=== PATIENT | male | born 1980 | race Caucasian/White ===

== ENCOUNTER → 2017-02-19 | Outpatient (CLI) | payer OTHER ==
[2017-02-19 09:27] LABS: BASOPHILS % (AUTO) 1 % (0-10); EOSINOPHILS # (AUTO) 0.2 10^3/uL (0.0-0.3); EOSINOPHILS % (AUTO) 3 % (0-10); LYMPHOCYTES # (AUTO) 2.3 X 10^3 (1.0-4.0); LYMPHOCYTES % (AUTO) 37 % (12-44); MEAN CORPUSCULAR HEMOGLOBIN 31 PG (25-34); MEAN CORPUSCULAR HGB CONC 35 G/DL (32-36); MEAN CORPUSCULAR VOLUME 89 FL (80-99); MEAN PLATELET VOLUME 8.6 FL (7.4-10.4); MONOCYTES # (AUTO) 0.4 X 10^3 (0.0-1.0); MONOCYTES % (AUTO) 7 % (0-12); NEUTROPHILS # (AUTO) 3.3 X 10^3 (1.8-7.8); NEUTROPHILS % (AUTO) 52 % (42-75); PLATELET COUNT 124 10^3/uL (130-400); RED BLOOD COUNT 5.13 10^6/uL (4.35-5.85); RED CELL DISTRIBUTION WIDTH 13.3 % (10.0-14.5); WHITE BLOOD COUNT 6.2 10^3/uL (4.3-11.0)
== END ==
LOC: LAB 08:59
PROVIDERS: ATTEND Internal Medicine Nephrology
DX: I12.9 Hypertensive chronic kidney disease with stage 1 through stage 4 chronic kidney disease, or unspecified chronic kidney disease (principal); N18.3 Chronic kidney disease, stage 3 (moderate); D64.9 Anemia, unspecified; R60.9 Edema, unspecified
CPT/HCPCS: 36415; 82728; 85025

== ENCOUNTER → 2018-05-05 | Outpatient (CLI) | payer SELFPAY ==
[2018-05-05 09:29] LABS: BILIRUBIN,URINE NEGATIVE (NEGATIVE); CLARITY,URINE SLIGHTLY CLOUDY; COLOR,URINE YELLOW; GLUCOSE, URINE (UA) NEGATIVE (NEGATIVE); KETONES,URINE NEGATIVE (NEGATIVE); LEUKOCYTE ESTERASE ,URINE 3+ (NEGATIVE); NITRITE,URINE NEGATIVE (NEGATIVE); PH,URINE 6 (5-9); PROTEIN,URINE 4+ (NEGATIVE); UROBILINOGEN,URINE 1 MG/DL (NORMAL)
[2018-05-05 09:31] LABS: BASOPHILS % (AUTO) 1 % (0-10); EOSINOPHILS # (AUTO) 0.1 10^3/uL (0.0-0.3); EOSINOPHILS % (AUTO) 3 % (0-10); HEMATOCRIT 45 % (40-54); HEMOGLOBIN 15.9 G/DL (13.3-17.7); LYMPHOCYTES # (AUTO) 1.4 X 10^3 (1.0-4.0); LYMPHOCYTES % (AUTO) 30 % (12-44); MEAN CORPUSCULAR HEMOGLOBIN 31 PG (25-34); MEAN CORPUSCULAR HGB CONC 36 G/DL (32-36); MEAN CORPUSCULAR VOLUME 86 FL (80-99); MEAN PLATELET VOLUME 8.9 FL (7.4-10.4); MONOCYTES # (AUTO) 0.3 X 10^3 (0.0-1.0); MONOCYTES % (AUTO) 7 % (0-12); NEUTROPHILS # (AUTO) 2.8 X 10^3 (1.8-7.8); NEUTROPHILS % (AUTO) 60 % (42-75); PLATELET COUNT 108 10^3/uL (130-400); RED CELL DISTRIBUTION WIDTH 13.4 % (10.0-14.5); WHITE BLOOD COUNT 4.6 10^3/uL (4.3-11.0)
[2018-05-05 09:43] LABS: BACTERIA,URINE NEGATIVE /HPF; WBC,URINE 25-50 /HPF
[2018-05-05 09:49] LABS: ALBUMIN 4.3 GM/DL (3.2-4.5); CALCIUM 9.3 MG/DL (8.5-10.1); CREATININE SERUM 1.58 MG/DL (0.60-1.30); PHOSPHORUS 2.6 MG/DL (2.3-4.7); POTASSIUM 3.8 MMOL/L (3.6-5.0)
== END ==
LOC: LAB 09:01
PROVIDERS: ATTEND Internal Medicine Nephrology
DX: I12.9 Hypertensive chronic kidney disease with stage 1 through stage 4 chronic kidney disease, or unspecified chronic kidney disease (principal); N18.3 Chronic kidney disease, stage 3 (moderate); D64.9 Anemia, unspecified; R60.0 Localized edema
CPT/HCPCS: 36415; 80069; 81000; 82306; 82570; 83970; 84156; 85025; 87088

== ENCOUNTER → 2018-11-09 | Outpatient (CLI) | payer OTHER ==
[2018-11-09 14:56] LABS: BASOPHILS % (AUTO) 0 % (0-10); EOSINOPHILS # (AUTO) 0.1 10^3/uL (0.0-0.3); EOSINOPHILS % (AUTO) 2 % (0-10); HEMATOCRIT 45 % (40-54); HEMOGLOBIN 15.7 G/DL (13.3-17.7); LYMPHOCYTES # (AUTO) 1.2 X 10^3 (1.0-4.0); LYMPHOCYTES % (AUTO) 25 % (12-44); MEAN CORPUSCULAR HEMOGLOBIN 31 PG (25-34); MEAN CORPUSCULAR HGB CONC 35 G/DL (32-36); MEAN CORPUSCULAR VOLUME 88 FL (80-99); MEAN PLATELET VOLUME 8.9 FL (7.4-10.4); MONOCYTES # (AUTO) 0.3 X 10^3 (0.0-1.0); MONOCYTES % (AUTO) 6 % (0-12); NEUTROPHILS # (AUTO) 3.3 X 10^3 (1.8-7.8); NEUTROPHILS % (AUTO) 66 % (42-75); PLATELET COUNT 99 10^3/uL (130-400); RED CELL DISTRIBUTION WIDTH 13.8 % (10.0-14.5)
[2018-11-09 15:06] LABS: BILIRUBIN,URINE NEGATIVE (NEGATIVE); CLARITY,URINE CLEAR; COLOR,URINE YELLOW; GLUCOSE, URINE (UA) NEGATIVE (NEGATIVE); KETONES,URINE NEGATIVE (NEGATIVE); LEUKOCYTE ESTERASE ,URINE 2+ (NEGATIVE); NITRITE,URINE NEGATIVE (NEGATIVE); PH,URINE 5 (5-9); PROTEIN,URINE 4+ (NEGATIVE); UROBILINOGEN,URINE NORMAL (NORMAL)
[2018-11-09 15:15] LABS: CREATININE SERUM 1.74 MG/DL (0.60-1.30); POTASSIUM 3.6 MMOL/L (3.6-5.0)
[2018-11-09 15:28] LABS: BACTERIA,URINE FEW /HPF; WBC,URINE 25-50 /HPF
== END ==
LOC: LAB 14:07
PROVIDERS: ATTEND Internal Medicine Nephrology
DX: I12.9 Hypertensive chronic kidney disease with stage 1 through stage 4 chronic kidney disease, or unspecified chronic kidney disease (principal); N18.3 Chronic kidney disease, stage 3 (moderate); D64.9 Anemia, unspecified; R60.0 Localized edema; D69.6 Thrombocytopenia, unspecified; E21.1 Secondary hyperparathyroidism, not elsewhere classified; R82.90 Unspecified abnormal findings in urine
CPT/HCPCS: 36415; 80069; 81000; 82306; 82570; 83970; 84156; 85025; 87088

== ENCOUNTER 2018-12-14 10:39 | Emergency (ER) | payer OTHER ==
[~2018-12-14] VITALS: Ht 185.4 cm; Wt 106.6 kg
[2018-12-14] MEDS ORDERED: HYDR-4226 PO (10:53)
--- NOTE | 2018-12-14 10:53 | ED Fall/Injury ---
General Stated Complaint: HURT RIBS AT WORK, HIT RIBS ON EQUIPMENT AT WORK Source: patient Exam Limitations: no limitations History of Present Illness Date Seen by Provider: Dec 14, 2018 Time Seen by Provider: 10:49 Initial Comments To ER per private vehicle with reports of a fall at work. This occurred yesterday, he works at [employer] and fell against a large skillet. He complains of pain to the right lateral lower chest and upper abdomen area. He denies shortness of breath. Denies lightheadedness. Occurred: yesterday Severity: moderate Injuries/Pain Location: chest, abdomen Context: slipped Loss of Consciousness: no loss of consciousness Modifying Factors: Worse With Movement Allergies and Home Medications Allergies Coded Allergies: No Known Drug Allergies (Unverified , 10/21/15) Home Medications Hydrocodone/Acetaminophen 1 Each Tablet, 1 EACH PO Q6H PRN for PAIN-MODERATE Prescribed by: DAYANA VALDOVINOS on 12/14/18 1053 Patient Home Medication List Home Medication List Reviewed: Yes Review of Systems Review of Systems Constitutional: see HPI Eyes: No Symptoms Reported Ears, Nose, Mouth, Throat: no symptoms reported Respiratory: see HPI, other (Pain on deep breathing) Cardiovascular: no symptoms reported Genitourinary: no symptoms reported Musculoskeletal: no symptoms reported Skin: no symptoms reported Psychiatric/Neurological: No Symptoms Reported Past Dbtxnjb-Nuvviv-Xprgem Hx Patient Social History Recent Foreign Travel: No Contact w/Someone Who Travel: No Past Medical History Reproductive Disorders: No Adverse Reaction/Blood Tranf: No Physical Exam Vital Signs Vital Signs - First Documented 12/14/18 10:45 Temp 96.5 Pulse 62 Resp 18 B/P (MAP) 241/157 (185) Pulse Ox 94 O2 Delivery Room Air Capillary Refill : Height, Weight, BMI Height: '" Weight: lbs. oz. kg; BMI Method: General Appearance: WD/WN, no apparent distress HEENT: PERRL/EOMI, normal ENT inspection Neck: non-tender, full range of motion Respiratory: no respiratory distress, no accessory muscle use Gastrointestinal: non tender, soft Neurologic/Psychiatric: alert, normal mood/affect, oriented x 3 Skin: normal color, warm/dry, ecchymosis, other (there is a linear ecchymosis oriented and in anterior to posterior fashion along the lateral aspect of the torso on the right just inferior to the 12th rib) Deepthi Coma Score Best Eye Response: (4) Open Spontaneously Best Verbal Response: (5) Oriented Best Motor Response: (6) Obeys Commands Deepthi Total: 15 Progress/Results/Core Measures Results/Orders Lab Results Laboratory Tests Test 12/14/18 11:00 Range/Units White Blood Count 6.2 4.3-11.0 10^3/uL Red Blood Count 5.03 4.35-5.85 10^6/uL Hemoglobin 15.6 13.3-17.7 G/DL Hematocrit 44 40-54 % Mean Corpuscular Volume 87 80-99 FL Mean Corpuscular Hemoglobin 31 25-34 PG Mean Corpuscular Hemoglobin Concent 36 32-36 G/DL Red Cell Distribution Width 13.5 10.0-14.5 % Platelet Count 111 L 130-400 10^3/uL Mean Platelet Volume 8.7 7.4-10.4 FL Neutrophils (%) (Auto) 71 42-75 % Lymphocytes (%) (Auto) 20 12-44 % Monocytes (%) (Auto) 7 0-12 % Eosinophils (%) (Auto) 2 0-10 % Basophils (%) (Auto) 0 0-10 % Neutrophils # (Auto) 4.5 1.8-7.8 X 10^3 Lymphocytes # (Auto) 1.2 1.0-4.0 X 10^3 Monocytes # (Auto) 0.4 0.0-1.0 X 10^3 Eosinophils # (Auto) 0.1 0.0-0.3 10^3/uL Basophils # (Auto) 0.0 0.0-0.1 10^3/uL Sodium Level 138 135-145 MMOL/L Potassium Level 3.8 3.6-5.0 MMOL/L Chloride Level 104 98-107 MMOL/L Carbon Dioxide Level 25 21-32 MMOL/L Anion Gap 9 5-14 MMOL/L Blood Urea Nitrogen 31 H 7-18 MG/DL Creatinine 1.70 H 0.60-1.30 MG/DL Estimat Glomerular Filtration Rate 46 BUN/Creatinine Ratio 18 Glucose Level 83 70-105 MG/DL Calcium Level 9.2 8.5-10.1 MG/DL My Orders Orders - DAYANA VALDOVINOS APRN Ct Chest/Abdomen Wo (12/14/18 10:48) Hydrocodone/Apap 5/325 Tablet (Lortab 5 (3/13/19 11:00) Cbc With Automated Diff (12/14/18 10:58) Basic Metabolic Panel (12/14/18 10:58) Amlodipine Tablet (Norvasc Tablet) (12/14/18 11:00) Hydralazine Injection (Apresoline Inject (12/14/18 11:45) Hydralazine Injection (Apresoline Inject (12/14/18 12:15) Fentanyl Injection (Sublimaze Injection (12/14/18 12:15) Medications Given in ED Current Medications Medications Dose Ordered Sig/Herbert Route Start Time Stop Time Status Last Admin Dose Admin Acetaminophen/ Hydrocodone Bitart 1 tab ONCE ONCE PO 12/14/18 11:00 12/14/18 11:01 DC 12/14/18 11:05 1 TAB Amlodipine Besylate 5 mg ONCE ONCE PO 12/14/18 11:00 12/14/18 11:01 DC 12/14/18 11:19 5 MG Fentanyl Citrate 50 mcg ONCE ONCE IVP 12/14/18 12:15 12/14/18 12:16 DC 12/14/18 12:26 50 MCG Hydralazine HCl 10 mg ONCE ONCE IV 12/14/18 11:45 12/14/18 11:46 DC 12/14/18 11:40 10 MG Vital Signs/I&O 12/14/18 10:45 Temp 96.5 Pulse 62 Resp 18 B/P (MAP) 241/157 (185) Pulse Ox 94 O2 Delivery Room Air Departure Communication (Admissions) Patient states that his blood pressure is always high when he goes to the doctor 's office and it goes back down once he goes home. He states that normally he is in the 130s over 90s range. He has not had his antihypertensives yet this morning Impression Primary Impression: Rib fracture Qualified Codes: S22.41XA - Multiple fractures of ribs, right side, initial encounter for closed fracture Additional Impressions: Hypertension Qualified Codes: I10 - Essential (primary) hypertension Chronic kidney disease Qualified Codes: N18.9 - Chronic kidney disease, unspecified Disposition: 01 HOME, SELF-CARE Condition: Stable Departure-Patient Inst. Decision time for Depature: 10:52 Referrals: SRUTHI MARSH MD (PCP/Family) Primary Care Physician Patient Instructions: RIB FRACTURE Add. Discharge Instructions: 1. Medication as directed 2. Deep breathing to prevent the development of pneumonia. Return to ER for any fevers lightheadedness shortness of breath or other concerns. Follow-up with your doctor within 48 hours to recheck your blood pressure Scripts Hydrocodone/Acetaminophen ([place] 5-325 Tablet) 1 Each Tablet 1 EACH PO Q6H PRN for PAIN-MODERATE MDD 10, #20 TAB Prov: DAYANA VALDOVINOS APRN 12/14/18 Work/School Note: Work Release Form Date Seen in the Emergency Department: Dec 14, 2018 Return to Work: Dec 17, 2018 Restrictions: No Restrictions Images Torso/Trunk 1 - Contusion, Ecchymosis DAYANA VALDOVINOS APRN Dec 14, 2018 10:53
[2018-12-14] MEDS ORDERED: amLODIPine 5 MG (NORVASC) TAB PO ONE (11:00)
[2018-12-14] MEDS ORDERED: HYDROcodone/APAP 5 MG/325 MG (LORTAB) TAB PO ONE (11:00)
[2018-12-14 11:12] LABS: BASOPHILS % (AUTO) 0 % (0-10); EOSINOPHILS # (AUTO) 0.1 10^3/uL (0.0-0.3); EOSINOPHILS % (AUTO) 2 % (0-10); HEMATOCRIT 44 % (40-54); HEMOGLOBIN 15.6 G/DL (13.3-17.7); LYMPHOCYTES # (AUTO) 1.2 X 10^3 (1.0-4.0); LYMPHOCYTES % (AUTO) 20 % (12-44); MEAN CORPUSCULAR HEMOGLOBIN 31 PG (25-34); MEAN CORPUSCULAR HGB CONC 36 G/DL (32-36); MEAN CORPUSCULAR VOLUME 87 FL (80-99); MEAN PLATELET VOLUME 8.7 FL (7.4-10.4); MONOCYTES # (AUTO) 0.4 X 10^3 (0.0-1.0); MONOCYTES % (AUTO) 7 % (0-12); NEUTROPHILS # (AUTO) 4.5 X 10^3 (1.8-7.8); NEUTROPHILS % (AUTO) 71 % (42-75); PLATELET COUNT 111 10^3/uL (130-400); RED CELL DISTRIBUTION WIDTH 13.5 % (10.0-14.5); WHITE BLOOD COUNT 6.2 10^3/uL (4.3-11.0)
[2018-12-14 11:31] LABS: CALCIUM 9.2 MG/DL (8.5-10.1); CREATININE SERUM 1.7 MG/DL (0.60-1.30); POTASSIUM 3.8 MMOL/L (3.6-5.0)
[2018-12-14] MEDS ORDERED: hydrALAZINE (APESOLINE) 20 MG/ML VIAL IV ONE ×2 (11:45→12:15)
--- NOTE | 2018-12-14 11:51 | Diagnostic Imaging Report ---
PROCEDURE: CT chest and abdomen without contrast. TECHNIQUE: Axial images were obtained from the thoracic inlet through the iliac crest without the administration of intravenous contrast. INDICATION: Fall with right-sided rib pain. No prior studies available for comparison. CT CHEST: No mediastinal hematoma is identified. No pericardial or pleural fluid or evidence of hemothorax is seen. No pulmonary contusion or pneumothorax is identified. There is slight irregularity involving the right lateral ninth and tenth ribs. These are consistent with fractures, however, the age is indeterminate. Clinical correlation with prior rib injury is recommended. CT ABDOMEN: No perihepatic or hilario-splenic fluid is seen. Gallbladder is unremarkable. No biliary duct dilatation seen. Pancreas, adrenal glands and kidneys are unremarkable. There is no free fluid. Bowel loops are unremarkable. IMPRESSION: 1. Age-indeterminate right lateral ninth and tenth rib fractures. These could potentially be old and clinical correlation to prior injury is recommended. There is no evidence of parenchymal contusion, hemothorax or pneumothorax. 2. No acute feature in the abdomen is identified. Dictated by: Dictated on workstation # [id number]
[2018-12-14] MEDS ORDERED: fentaNYL INJECTION 100 MCG/2 ML AMP IVP ONE (12:15)
[2018-12-14 13:06] VITALS: BP 186/131
== END 2018-12-14 13:06 | disposition home or self-care (01) ==
LOC: EDUNIT# 10:39 → ER 10:44
DX: S22.41XA Multiple fractures of ribs, right side, initial encounter for closed fracture (principal); I12.9 Hypertensive chronic kidney disease with stage 1 through stage 4 chronic kidney disease, or unspecified chronic kidney disease; N18.9 Chronic kidney disease, unspecified; R40.2142 Coma scale, eyes open, spontaneous, at arrival to emergency department; R40.2252 Coma scale, best verbal response, oriented, at arrival to emergency department; R40.2362 Coma scale, best motor response, obeys commands, at arrival to emergency department; W19.XXXA Unspecified fall, initial encounter; Y92.511 Restaurant or cafe as the place of occurrence of the external cause; Y99.0 Civilian activity done for income or pay
CPT/HCPCS: 36415; 71250; 74150; 80048; 85025

== ENCOUNTER → 2019-07-18 | Outpatient (CLI) | payer SELFPAY ==
[~2019-07-18] MED LIST: HYDR-4226 PO
[2019-07-18 15:55] LABS: HEMOGLOBIN 15.8 G/DL (13.3-17.7); MEAN PLATELET VOLUME 8.6 FL (7.4-10.4); RED CELL DISTRIBUTION WIDTH 13.7 % (10.0-14.5); WHITE BLOOD COUNT 7.8 10^3/uL (4.3-11.0)
[2019-07-18 15:56] LABS: BILIRUBIN,URINE 1+ (NEGATIVE); CLARITY,URINE VERY CLOUDY; COLOR,URINE YELLOW; GLUCOSE, URINE (UA) NEGATIVE (NEGATIVE); KETONES,URINE NEGATIVE (NEGATIVE); LEUKOCYTE ESTERASE ,URINE 3+ (NEGATIVE); NITRITE,URINE NEGATIVE (NEGATIVE); PH,URINE 5 (5-9); PROTEIN,URINE 4+ (NEGATIVE); UROBILINOGEN,URINE NORMAL (NORMAL)
[2019-07-18 16:21] LABS: ALBUMIN 4.3 GM/DL (3.2-4.5); CALCIUM 8.6 MG/DL (8.5-10.1); CREATININE SERUM 3.11 MG/DL (0.60-1.30); PHOSPHORUS 4.4 MG/DL (2.3-4.7); POTASSIUM 3.3 MMOL/L (3.6-5.0)
[2019-07-18 18:19] LABS: BACTERIA,URINE FEW /HPF; WBC,URINE TNTC /HPF
== END ==
LOC: LAB 15:23
PROVIDERS: ATTEND Internal Medicine Nephrology
DX: Z01.89 Encounter for other specified special examinations (principal)
CPT/HCPCS: 36415; 80069; 81000; 82306; 82570; 82607; 82728; 82746; 83540; 83970; 84156; 85027; 87088

== ENCOUNTER → 2019-07-28 | Outpatient (CLI) | payer SELFPAY ==
--- NOTE | 2019-07-28 09:46 | Diagnostic Imaging Report ---
PROCEDURE: US Renal Bilateral. TECHNIQUE: Multiple real-time grayscale images were obtained over the kidneys in various projections bilaterally. INDICATION: Chronic kidney disease, stage III. FINDINGS: Right kidney measures 11.8 x 5.6 x 5.1 cm and the left kidney measures 11.1 x 4.6 x 4.6 cm. Cyst in the upper pole of the right kidney is noted measuring 2.4 x 2.3 x 1.7 cm. Renal cortices do appear to be somewhat echogenic consistent with medical renal disease. No calculi or hydronephrosis is identified. Partially filled urinary bladder demonstrates bilateral ureteral jets. IMPRESSION: 1. Findings consistent with medical renal disease. 2. Right renal cyst. 3. No hydronephrosis is detected. Dictated by: Dictated on workstation # [id number]
== END ==
LOC: RAD 08:12
PROVIDERS: ATTEND Internal Medicine Nephrology
DX: N28.1 Cyst of kidney, acquired (principal); N18.3 Chronic kidney disease, stage 3 (moderate)
CPT/HCPCS: 76770

== ENCOUNTER → 2019-08-04 | Outpatient (CLI) | payer OTHER ==
[~2019-08-04] MED LIST changes: +AMLO10TA7 PO; +ATEN50TA PO; +CALC0.5C11 PO; +CEFD300C3 PO; +MTP100TCR PO
[2019-08-04 16:04] LABS: BILIRUBIN,URINE NEGATIVE (NEGATIVE); CLARITY,URINE CLEAR; COLOR,URINE YELLOW; GLUCOSE, URINE (UA) NEGATIVE (NEGATIVE); KETONES,URINE NEGATIVE (NEGATIVE); LEUKOCYTE ESTERASE ,URINE 3+ (NEGATIVE); NITRITE,URINE NEGATIVE (NEGATIVE); PH,URINE 5 (5-9); PROTEIN,URINE 3+ (NEGATIVE)
[2019-08-04 16:10] LABS: ALBUMIN 4.3 GM/DL (3.2-4.5); CALCIUM 8.9 MG/DL (8.5-10.1); CREATININE SERUM 2.09 MG/DL (0.60-1.30); PHOSPHORUS 3.3 MG/DL (2.3-4.7); POTASSIUM 4.5 MMOL/L (3.6-5.0)
[2019-08-04 16:28] LABS: BACTERIA,URINE MODERATE /HPF; WBC,URINE >100 /HPF
== END ==
LOC: LAB 15:24
PROVIDERS: ATTEND Internal Medicine Nephrology
DX: I12.9 Hypertensive chronic kidney disease with stage 1 through stage 4 chronic kidney disease, or unspecified chronic kidney disease (principal); N18.3 Chronic kidney disease, stage 3 (moderate); D69.6 Thrombocytopenia, unspecified; D63.1 Anemia in chronic kidney disease; E21.1 Secondary hyperparathyroidism, not elsewhere classified
CPT/HCPCS: 36415; 80069; 81000; 82306; 82570; 83970; 84156; 86021; 86038; 86039; 86160; 87088

== ENCOUNTER → 2019-09-07 | Outpatient (CLI) | payer OTHER ==
[~2019-09-07] MED LIST changes: +METO-395 PO; -MTP100TCR PO
[2019-09-07 15:12] LABS: BILIRUBIN,URINE NEGATIVE (NEGATIVE); CLARITY,URINE CLEAR; COLOR,URINE YELLOW; GLUCOSE, URINE (UA) NEGATIVE (NEGATIVE); KETONES,URINE NEGATIVE (NEGATIVE); LEUKOCYTE ESTERASE ,URINE 3+ (NEGATIVE); NITRITE,URINE NEGATIVE (NEGATIVE); PH,URINE 5.5 (5-9); PROTEIN,URINE 2+ (NEGATIVE)
[2019-09-07 15:16] LABS: BASOPHILS % (AUTO) 0 % (0-10); EOSINOPHILS # (AUTO) 0.2 10^3/uL (0.0-0.3); EOSINOPHILS % (AUTO) 2 % (0-10); HEMATOCRIT 44 % (40-54); HEMOGLOBIN 15.4 G/DL (13.3-17.7); LYMPHOCYTES # (AUTO) 1.2 X 10^3 (1.0-4.0); LYMPHOCYTES % (AUTO) 17 % (12-44); MEAN CORPUSCULAR HEMOGLOBIN 31 PG (25-34); MEAN CORPUSCULAR HGB CONC 35 G/DL (32-36); MEAN CORPUSCULAR VOLUME 88 FL (80-99); MEAN PLATELET VOLUME 8.6 FL (7.4-10.4); MONOCYTES # (AUTO) 0.4 X 10^3 (0.0-1.0); MONOCYTES % (AUTO) 5 % (0-12); NEUTROPHILS # (AUTO) 5.2 X 10^3 (1.8-7.8); NEUTROPHILS % (AUTO) 75 % (42-75); PLATELET COUNT 116 10^3/uL (130-400); RED CELL DISTRIBUTION WIDTH 13.6 % (10.0-14.5); WHITE BLOOD COUNT 6.9 10^3/uL (4.3-11.0)
[2019-09-07 15:20] LABS: BACTERIA,URINE MODERATE /HPF; WBC,URINE >100 /HPF
[2019-09-07 15:39] LABS: ALBUMIN 4.3 GM/DL (3.2-4.5); CALCIUM 9.4 MG/DL (8.5-10.1); CREATININE SERUM 2.41 MG/DL (0.60-1.30); PHOSPHORUS 4.3 MG/DL (2.3-4.7); POTASSIUM 3.8 MMOL/L (3.6-5.0)
== END ==
LOC: LAB 14:53
PROVIDERS: ATTEND Internal Medicine Nephrology
DX: E21.1 Secondary hyperparathyroidism, not elsewhere classified (principal); N18.3 Chronic kidney disease, stage 3 (moderate); D64.9 Anemia, unspecified
CPT/HCPCS: 36415; 80069; 81000; 82570; 84156; 85025; 86021; 86038; 86160; 86225; 86235; 87077; 87088

== ENCOUNTER 2019-09-18 23:45 | Inpatient (IN) | payer OTHER ==
[~2019-09-18] VITALS: Ht 185 cm; Wt 112.2 kg
[~2019-09-18 23:45] MED LIST changes: -AMLO10TA7 PO; -ATEN50TA PO; -CALC0.5C11 PO; -CEFD300C3 PO; -METO-395 PO
[2019-09-19] MEDS ORDERED: methylPREDNISolone 125 MG (Solu-MEDROL) VIAL IV STA (00:15)
[2019-09-19] MEDS ORDERED: RT-ALBUTEROL/IPRATROPIUM 3 ML (DUONEB) VIAL INH ONE ×4 (00:15→00:30)
[2019-09-19 00:16] LABS: BASOPHILS % (AUTO) 0 % (0-10); EOSINOPHILS # (AUTO) 0.2 10^3/uL (0.0-0.3); EOSINOPHILS % (AUTO) 3 % (0-10); HEMATOCRIT 45 % (40-54); LYMPHOCYTES # (AUTO) 1.9 X 10^3 (1.0-4.0); LYMPHOCYTES % (AUTO) 26 % (12-44); MEAN CORPUSCULAR HEMOGLOBIN 31 PG (25-34); MEAN CORPUSCULAR HGB CONC 35 G/DL (32-36); MEAN CORPUSCULAR VOLUME 87 FL (80-99); MONOCYTES # (AUTO) 0.4 X 10^3 (0.0-1.0); MONOCYTES % (AUTO) 6 % (0-12); NEUTROPHILS # (AUTO) 4.7 X 10^3 (1.8-7.8); NEUTROPHILS % (AUTO) 64 % (42-75); PLATELET COUNT 123 10^3/uL (130-400); RED CELL DISTRIBUTION WIDTH 13.9 % (10.0-14.5); WHITE BLOOD COUNT 7.3 10^3/uL (4.3-11.0)
[2019-09-19 00:22] LABS: PROTHROMBIN TIME PATIENT 13.4 SEC (12.2-14.7)
[2019-09-19 00:30] LABS: ALBUMIN 4.3 GM/DL (3.2-4.5); BILIRUBIN,TOTAL 0.6 MG/DL (0.1-1.0); CALCIUM 8.6 MG/DL (8.5-10.1); CREATININE SERUM 1.93 MG/DL (0.60-1.30); POTASSIUM 3.7 MMOL/L (3.6-5.0); TOTAL PROTEIN 7.9 GM/DL (6.4-8.2)
[2019-09-19] MEDS ORDERED: BENZONATATE 100 MG (TESSALON) CAPSULE PO SCH (00:30)
[2019-09-19] MEDS ORDERED: LABETALOL HCL 20 MG/4 ML VIAL IV ONE (00:30)
[2019-09-19 00:32] LABS: MAGNESIUM 2.1 MG/DL (1.6-2.4)
[2019-09-19 00:32] LABS: ABG BASE EXCESS 1.7 MMOL/L (-2.5-2.5); ABG OXYGEN SATURATION 93 % (94-100); ABG PCO2 51 MMHG (35-45); ABG PH 7.35 (7.37-7.43); ABG PO2 66 MMHG (79-93); ABG TCO2 28.7 MMOL/L (21.0-31.0); ALLENS TEST YES-POS
[2019-09-19 00:33] LABS: INSPIRED O2 2L; PATIENT TEMP 36.2; VENTILATOR NO
--- NOTE | 2019-09-19 00:35 | ED Respiratory ---
General Chief Complaint: Coughing up blood Stated Complaint: COUGHING UP BLOOD Nursing Triage Note: Pt ambulates to RM 5 with c/o coughing up blood x 4 hrs. Pt is actively coughing up bright red blood on arrival. Pt denies taking any blood thinners. Source: patient History of Present Illness Date Seen by Provider: Sep 19, 2019 Time Seen by Provider: 00:05 Initial Comments PT ARRIVES VIA POV FROM HOME STATES HE STARTED COUGHING UP BLOOD "A COUPLE OF HOURS AGO" --PT IS COUGHING CONTINUOUSLY AND HAVING GROSS HEMOPTYSIS WITH STATES HE WAS NOT COUGHING BEFORE THEN, AND SUDDENLY STARTED COUGHING UP BLOOD STATES HE HAS BEEN FINE ALL DAY, DENIES RECENT ILLNESS NO FEVER NO CHEST PAIN NO SHORTNESS OF BREATH NO NOSEBLEED NO NAUSEA/VOMITING NO ABDOMINAL PAIN NO HISTORY OF SIMILAR NO HISTORY OF ANY RESPIRATORY PROBLEMS PT IS NOT ON ASPIRIN OR ANY BLOOD THINNERS. PT HAS HTN, DENIES ANY MISSED DOSES OF MEDICATIONS, OR CHANGES IN MEDS/DOSES. PT WORKS AT [employer]. DENIES ANY CHEMICAL EXPOSURES, ETC. PT SMOKED 1/2 PPD--'QUIT' A COUPLE OF WEEKS AGO DENIES SMOKING ANYTHING BESIDES CIGARETTES, AND DENIES VAPING. PCP: DR. MARSH MANGA ARTIST: DR. PEARSON IN [place] Allergies and Home Medications Allergies Coded Allergies: No Known Drug Allergies (Unverified , 10/21/15) Home Medications Hydrocodone/Acetaminophen 1 Each Tablet, 1 EACH PO Q6H PRN for PAIN-MODERATE Prescribed by: DAYANA VALDOVINOS on 12/14/18 1053 Patient Home Medication List Home Medication List Reviewed: Yes Review of Systems Review of Systems Constitutional: No dizziness, No fever, No malaise, No weakness; other (BEGAN SWEATING SHORTLY AFTER ARRIVAL HERE) EENTM: no symptoms reported Respiratory: see HPI, cough, hemoptysis; No short of breath, No wheezing Cardiovascular: no symptoms reported; No chest pain, No edema, No palpitations, No syncope Gastrointestinal: no symptoms reported; No abdominal pain, No nausea, No vomiting Genitourinary: no symptoms reported Musculoskeletal: no symptoms reported; No back pain Skin: no symptoms reported Psychiatric/Neurological: No Symptoms Reported Hematologic/Lymphatic: No Symptoms Reported; Denies Anemia, Denies Blood Clots, Denies Easy Bleeding, Denies Easy Bruising Immunological/Allergic: no symptoms reported Past Tmvjhds-Stsyff-Puargp Hx Patient Social History Alcohol Use: Occasionally Uses Recreational Drug Use: No Smoking Status: Former Smoker (1/2 PPD) Type Used: Cigarettes Former Smoker, Quit: Jul 04, 2019 Recent Foreign Travel: No Contact w/Someone Who Travel: No Recent Infectious Disease Expo: No Recent Hopitalizations: No Physical Abuse: No Sexual Abuse: No Mistreated: No Fear: No Past Medical History Surgeries: Yes Eye Surgery Respiratory: No Cardiac: Yes Hypertension Neurological: No Reproductive Disorders: No Genitourinary: Yes (NO DIALYSIS) Renal Failure Gastrointestinal: No Musculoskeletal: Yes (LEFT FOOT AND ANKLE PROBLEMS--"NERVE DAMAGE" ) Endocrine: No HEENT: Yes (EYE PROBLEMS SINCE ; 'LEGALLY BLIND" ) Loss of Vision: Bilateral Cancer: No Psychosocial: No Integumentary: No Blood Disorders: No Adverse Reaction/Blood Tranf: No Physical Exam Vital Signs - First Documented 09/18/19 09/19/19 23:57 00:47 Temp 36.2 Pulse 130 B/P (MAP) 246/188 (207) Pulse Ox 92 O2 Delivery Room Air O2 Flow Rate 3.00 Capillary Refill : Less Than 3 Seconds Height: 6'1.00" Weight: 235lbs. oz. 106.450889al; 31.00 BMI Method:Stated General Appearance: other (CONSTANT COUGHING, AND COUGHING UP COPIOUS AMOUNTS OF KYLER BLOOD. PT IS PROFUSELY DIAPHORETIC AT THIS TIME. SOMEWHAT ANXIOUS; WALKS WITH SLIGHT LIMP. ) HEENT: other (EXTREMELY POOR DENTITION, MANY MISSING TEETH AND REMAINING TEETH WITH EXTENSIVE DECAY. BLOOD IS NOW COMING FROM BOTH NARES WITH COUGHING) Respiratory: other (DIFFUSE RALES BILATERALLY. 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, no motor/sensory deficits, alert, oriented x 3 Skin: diaphoresis (WARM) Focused Exam Lactate Level 09/19/19 00:26: Lactic Acid Level 0.90 Lactic Acid Level Laboratory Tests Test 09/19/19 00:26 Lactic Acid Level 0.90 MMOL/L (0.50-2.00) Progress/Results/Core Measures Suspected Sepsis Recent Fever Within 48 Hours: No Infection Criteria Present: None New/Unexplained Altered Menta: No Sepsis Screen: No Definite Risk SIRS Temperature: Pulse: 130 Respiratory Rate: Laboratory Tests 09/19/19 00:02: White Blood Count 7.3 Blood Pressure 246 /188 Mean: 207 09/19/19 00:26: Lactic Acid Level 0.90 Laboratory Tests 09/19/19 00:02: Creatinine 1.93H, INR Comment 1.0, Platelet Count 123L, Total Bilirubin 0.6 Results/Orders Lab Results Laboratory Tests Test 09/19/19 00:02 09/19/19 00:15 09/19/19 00:21 09/19/19 00:26 Range/Units White Blood Count 7.3 4.3-11.0 10^3/uL Red Blood Count 5.21 4.35-5.85 10^6/uL Hemoglobin 16.0 13.3-17.7 G/DL Hematocrit 45 40-54 % Mean Corpuscular Volume 87 80-99 FL Mean Corpuscular Hemoglobin 31 25-34 PG Mean Corpuscular Hemoglobin Concent 35 32-36 G/DL Red Cell Distribution Width 13.9 10.0-14.5 % Platelet Count 123 L 130-400 10^3/uL Mean Platelet Volume 9.0 7.4-10.4 FL Neutrophils (%) (Auto) 64 42-75 % Lymphocytes (%) (Auto) 26 12-44 % Monocytes (%) (Auto) 6 0-12 % Eosinophils (%) (Auto) 3 0-10 % Basophils (%) (Auto) 0 0-10 % Neutrophils # (Auto) 4.7 1.8-7.8 X 10^3 Lymphocytes # (Auto) 1.9 1.0-4.0 X 10^3 Monocytes # (Auto) 0.4 0.0-1.0 X 10^3 Eosinophils # (Auto) 0.2 0.0-0.3 10^3/uL Basophils # (Auto) 0.0 0.0-0.1 10^3/uL Prothrombin Time 13.4 12.2-14.7 SEC INR Comment 1.0 0.8-1.4 Activated Partial Thromboplast Time 30 24-35 SEC Sodium Level 139 135-145 MMOL/L Potassium Level 3.7 3.6-5.0 MMOL/L Chloride Level 104 98-107 MMOL/L Carbon Dioxide Level 22 21-32 MMOL/L Anion Gap 13 5-14 MMOL/L Blood Urea Nitrogen 32 H 7-18 MG/DL Creatinine 1.93 H 0.60-1.30 MG/DL Estimat Glomerular Filtration Rate 39 BUN/Creatinine Ratio 17 Glucose Level 136 H 70-105 MG/DL Calcium Level 8.6 8.5-10.1 MG/DL Corrected Calcium 8.4 L 8.5-10.1 MG/DL Total Bilirubin 0.6 0.1-1.0 MG/DL Aspartate Amino Transf (AST/SGOT) 24 5-34 U/L Alanine Aminotransferase (ALT/SGPT) 18 0-55 U/L Alkaline Phosphatase 94 40-136 U/L Total Protein 7.9 6.4-8.2 GM/DL Albumin 4.3 3.2-4.5 GM/DL Erythrocyte Sedimentation Rate 2 0-15 MM/HR D-Dimer 0.40 0.00-0.49 UG/ML Magnesium Level 2.1 1.6-2.4 MG/DL Troponin I 0.209 H <0.028 NG/ML C-Reactive Protein High Sensitivity 0.22 0.00-0.50 MG/DL B-Type Natriuretic Peptide 487.9 H <100.0 PG/ML Serum Alcohol < 10 <10 MG/DL Blood Gas Puncture Site RIGHT RADIAL Blood Gas Patient Temperature 36.2 Arterial Blood pH 7.35 L 7.37-7.43 Arterial Blood Partial Pressure CO2 51 H 35-45 MMHG Arterial Blood Partial Pressure O2 66 L 79-93 MMHG Arterial Blood HCO3 27 23-27 MMOL/L Arterial Blood Total CO2 28.7 21.0-31.0 MMOL/L Arterial Blood Oxygen Saturation 93 L 94-100 % Arterial Blood Base Excess 1.7 -2.5-2.5 MMOL/L Aurelio Test YES-POS Blood Gas Ventilator Setting NO Blood Gas Inspired Oxygen 2L Lactic Acid Level 0.90 0.50-2.00 MMOL/L Test 09/19/19 01:55 Range/Units Urine Color YELLOW Urine Clarity CLEAR Urine pH 6.0 5-9 Urine Specific [place] 1.020 1.016-1.022 Urine Protein 2+ H NEGATIVE Urine Glucose (UA) NEGATIVE NEGATIVE Urine Ketones NEGATIVE NEGATIVE Urine Nitrite NEGATIVE NEGATIVE Urine Bilirubin NEGATIVE NEGATIVE Urine Urobilinogen 0.2 < = 1.0 MG/DL Urine Leukocyte Esterase TRACE NEGATIVE Urine RBC (Auto) TRACE-I NEGATIVE Urine RBC 0-2 /HPF Urine WBC 5-10 H /HPF Urine Squamous Epithelial Cells 0-2 /HPF Urine Crystals NONE /LPF Urine Bacteria FEW H /HPF Urine Casts PRESENT /LPF Urine Hyaline Casts 2-5 H /LPF Urine Mucus SMALL H /LPF Urine Culture Indicated YES Urine Opiates Screen NEGATIVE NEGATIVE Urine Oxycodone Screen NEGATIVE NEGATIVE Urine Methadone Screen NEGATIVE NEGATIVE Urine Propoxyphene Screen NEGATIVE NEGATIVE Urine Barbiturates Screen NEGATIVE NEGATIVE Ur Tricyclic Antidepressants Screen NEGATIVE NEGATIVE Urine Phencyclidine Screen NEGATIVE NEGATIVE Urine Amphetamines Screen NEGATIVE NEGATIVE Urine Methamphetamines Screen NEGATIVE NEGATIVE Urine Benzodiazepines Screen NEGATIVE NEGATIVE Urine Cocaine Screen NEGATIVE NEGATIVE Urine Cannabinoids Screen NEGATIVE NEGATIVE Micro Results Microbiology 09/19/19 Influenza Types A,B Antigen (YISSEL) - Final, Complete My Orders Orders - GIOVANNI FRANKLIN DO Cbc With Automated Diff (09/19/19 00:08) Comprehensive Metabolic Panel (09/19/19 00:08) Protime With Inr (09/19/19 00:08) Partial Thromboplastin Time (09/19/19 00:08) Influenza A And B Antigens (09/19/19 00:08) Albuterol/Ipra Inhalation Soln (Duoneb I (09/19/19 00:15) Rt Request For Service (09/19/19 00:15) Methylprednisolone Sod Succ (Solu-Medrol (09/19/19 00:15) Alcohol (09/19/19 00:15) Arterial Blood Gas (09/19/19 00:15) BNP (09/19/19 00:15) Drug Screen Stat (Urine) (09/19/19 00:15) Lactic Acid Analyzer (09/19/19 00:15) Magnesium (09/19/19 00:15) Ua Culture If Indicated (09/19/19 00:15) Blood Culture (09/19/19 00:15) Sputum Culture (09/19/19 00:15) Svn Small Volume Nebulizer (09/19/19 00:15) Benzonatate Capsule (Tessalon Perles) (09/19/19 00:30) Labetalol Injection (Normodyne Injection (09/19/19 00:30) Albuterol/Ipra Inhalation Soln (Duoneb I (09/19/19 00:30) Svn Small Volume Nebulizer (09/19/19 00:29) Albuterol/Ipra Inhalation Soln (Duoneb I (09/19/19 00:30) Svn Small Volume Nebulizer (09/19/19 00:29) Albuterol/Ipra Inhalation Soln (Duoneb I (09/19/19 00:30) Svn Small Volume Nebulizer (09/19/19 00:29) Troponin I (09/19/19 00:30) Dexamethasone Injection (Decadron Inject (09/19/19 00:45) Chest 1 View, Ap/Pa Only (09/19/19 ) Furosemide Injection (Lasix Injection) (09/19/19 01:00) Ekg Tracing (09/19/19 01:03) O2 (09/19/19 01:03) Monitor-Rhythm Ecg Trace Only (09/19/19 01:03) Ct Chest Wo (09/19/19 01:04) Ct Neck (Soft Tissue) Wo (09/19/19 01:04) Promethazine/ Codeine Syrup (Phenergan W (09/19/19 02:00) Hydralazine Injection (Apresoline Inject (09/19/19 02:15) Urine Culture (09/19/19 01:55) Ceftriaxone For Iv Use (Rocephin For I (09/19/19 02:30) Azithromycin Injection (Zithromax Inject (09/19/19 02:30) Hs C Reactive Protein (09/19/19 02:37) Erythrocyte Sedimentation Rate (09/19/19 02:37) Fibrin Degradation Products (09/19/19 02:37) Ed Iv/Invasive Line Start (09/19/19 02:50) Hydralazine Injection (Apresoline Inject (09/19/19 03:00) Medications Given in ED Current Medications Medications Dose Ordered Sig/Herbert Route Start Time Stop Time Status Last Admin Dose Admin Albuterol/ Ipratropium 3 ml ONCE ONCE INH 09/19/19 00:15 09/19/19 00:18 DC 09/19/19 00:46 3 ML Albuterol/ Ipratropium 3 ml ONCE ONCE INH 09/19/19 00:30 09/19/19 00:31 DC 09/19/19 00:46 3 ML Albuterol/ Ipratropium 3 ml ONCE ONCE INH 09/19/19 00:30 09/19/19 00:31 DC 09/19/19 00:46 3 ML Albuterol/ Ipratropium 3 ml ONCE ONCE INH 09/19/19 00:30 09/19/19 00:31 DC 09/19/19 00:46 3 ML Azithromycin 500 mg/Sodium Chloride 250 ml @ 250 mls/hr ONCE ONCE IV 09/19/19 02:30 09/19/19 03:29 DC 09/19/19 02:54 250 MLS/HR Ceftriaxone Sodium 1000 mg/ Sterile Water 10 ml @ 200 mls/hr ONCE ONCE IV 09/19/19 02:30 09/19/19 02:32 DC 09/19/19 02:54 200 MLS/HR Dexamethasone Sodium Phosphate 20 mg ONCE ONCE IH 09/19/19 00:45 09/19/19 01:22 TN 09/19/19 00:47 20 MG Furosemide 80 mg ONCE ONCE IVP 09/19/19 01:00 09/19/19 01:22 TN 09/19/19 00:58 80 MG Hydralazine HCl 10 mg ONCE ONCE IV 09/19/19 02:15 09/19/19 02:16 TN 09/19/19 02:15 10 MG Hydralazine HCl 10 mg ONCE ONCE IV 09/19/19 03:00 09/19/19 03:01 TN 09/19/19 03:08 10 MG Labetalol HCl 20 mg ONCE ONCE IV 09/19/19 00:30 09/19/19 00:31 TN 09/19/19 00:28 20 MG Promethazine HCl/ Codeine 5 ml ONCE ONCE PO 09/19/19 02:00 09/19/19 02:01 DC 09/19/19 01:58 5 ML Vital Signs/I&O 09/18/19 09/19/19 09/19/19 23:57 00:07 00:47 Temp 36.2 Pulse 130 B/P (MAP) 246/188 (207) Pulse Ox 92 O2 Delivery Room Air Room Air Nasal Cannula O2 Flow Rate 3.00 Capillary Refill : Less Than 3 Seconds Blood Pressure Mean: 207 POS Progress Note : Progress Note INITIAL BP 246/188, NEXT 2 READINGS--SYSTOLIC TOO HIGH TO READ ( BP CUTOFF IS 300 ), WITH DIASTOLICS IN 170'S. GIVEN LABETALOL AND HYDRALAZINE FOR BP--WITH IMPROVEMENT IN BOTH BP AND HEART RATE--BP 157/92 AT TIME OF ADMIT, PULSE IN 70-80'S. INITIAL O2 SATS IN LOW 80'5--PLACED ON O2 AT 4L/NC, THEN GAVE NEB TREATMENTS, WITH O2 SATS UP TO LOW 90'S, COUGH SUBSIDED DURING NEB TREATMENTS, THEN LATER RETURNED, ALONG WITH HEMOPTYSIS. FIRST MEASUREMENT WAS 100 + ML OF KYLER BLOOD. SECOND MEASUREMENT WAS 50 ML NO LONGER DIAPHORETIC COUGHING IMPROVED GIVEN SOLU-MEDROL AND LASIX ALSO GIVEN TESSALON AND PROMETHAZINE WITH CODEINE FOR COUGH WITH IMPROVEMENT IN COUGH ECG Initial ECG Impression Date: Sep 19, 2019 Initial ECG Impression Time: 01:17 Initial ECG Rate: 81 Initial ECG Rhythm: Normal Sinus Initial ECG Impression: Nonspecific Changes (IVCD), 1st Degree AV Block Initial ECG Comparisson: Unchanged Diagnostic Imaging Comments CXR--CHF/PULMONARY EDEMA, PENDING RADIOLOGIST REVIEW CT NECK SOFT TISSUES--NO ACUTE PROCESS, PER [facility] VIA FAX AT 0155 CT CHEST--FINDINGS SUSPICIOUS FOR LEFT LUNG PNEUMONIA--PATCHY GROUND GLASS OPACITIES IN PAVEL ANTERIORLY, MINIMAL PATCHY OPACITIES IN LLL. DIFFERENTIAL INCLUDES ASPIRATION, HEMORRHAGE--PER [facility] VIA FAX AT 0220 Reviewed: Reviewed by Me Departure Communication (Admissions) 222--SPOKE WITH DR. CARDONA, COMPUTER EQUIPMENT REPAIRER, ORDERS NOTED. HE WILL SEE PT IN CONSULT 0234--SPOKE WITH DR. SAXENA, HOSPITALIST, ACCEPTS PT FOR ADMIT. WILL CONSULT CARDIOLOGY IN AM. Impression Primary Impression: ACUTE COUGH WITH HEMOPTYSIS Additional Impressions: CHF Elevated troponin History of cigarette smoking Chronic renal insufficiency MALIGNANT HTN Disposition: ADMITTED INPATIENT Condition: Improved Admissions Decision to Admit Reason: Admit from ER (General) Decision to Admit/Date: Sep 19, 2019 Time/Decision to Admit Time: 02:30 Departure-Patient Inst. Referrals: SRUTHI MARSH MD (PCP/Family) Primary Care Physician GIOVANNI FRANKLIN DO Sep 19, 2019 00:34 POS
[2019-09-19] MEDS ORDERED: DEXAMETHASONE 4 MG/ML SDV (DECADRON) IH ONE (00:45)
[2019-09-19] MEDS ORDERED: FUROSEMIDE 40 MG/4 ML INJ (LASIX) IVP ONE (01:00)
[2019-09-19] MEDS ORDERED: PROMETHAZINE/ CODEINE SYRUP 5 ML UDC PO ONE (02:00)
[2019-09-19 02:04] LABS: BILIRUBIN,URINE NEGATIVE (NEGATIVE); CLARITY,URINE CLEAR; COLOR,URINE YELLOW; GLUCOSE, URINE (UA) NEGATIVE (NEGATIVE); KETONES,URINE NEGATIVE (NEGATIVE); LEUKOCYTE ESTERASE ,URINE TRACE (NEGATIVE); NITRITE,URINE NEGATIVE (NEGATIVE); PROTEIN,URINE 2+ (NEGATIVE)
[2019-09-19] MEDS ORDERED: hydrALAZINE (APESOLINE) 20 MG/ML VIAL IV ONE ×2 (02:15→03:00)
[2019-09-19 02:17] LABS: BACTERIA,URINE FEW /HPF; RBC,URINE 0-2 /HPF; SQUAMOUS EPITHELIAL CELL,UR 0-2 /HPF
[2019-09-19 02:18] LABS: AMPHETAMINE SCREEN, URINE NEGATIVE (NEGATIVE); BARBITURATE SCREEN URINE NEGATIVE (NEGATIVE); BENZODIAZEPINES SCREEN URINE NEGATIVE (NEGATIVE); CANNABINOID SCREEN, URINE NEGATIVE (NEGATIVE); COCAINE SCREEN URINE NEGATIVE (NEGATIVE); METHADONE STAT NEGATIVE (NEGATIVE); METHAMPHETAMINE SCREEN URINE S NEGATIVE (NEGATIVE); OPIATE SCREEN URINE NEGATIVE (NEGATIVE); OXYCODONE STAT NEGATIVE (NEGATIVE); PROPOXYPHENE STAT NEGATIVE (NEGATIVE); TRICYCLIC ANTIDEPRESSANTS SCRE NEGATIVE (NEGATIVE)
[2019-09-19] MEDS ORDERED: AZITHROMYCIN INJECTION 500 MG in NS (IVPB) 250 ML IV ONE (02:30)
[2019-09-19] MEDS ORDERED: cefTRIAXone FOR IV USE 1,000 MG in WATER (STERILE) FOR INJECTION 10 ML IV ONE (02:30)
--- NOTE | 2019-09-19 03:44 | NUR ---
REPORT RECEIVED FROM SHIRAZ ADKINS.
[2019-09-19 04:22] VITALS: BP 181/121
--- NOTE | 2019-09-19 04:22 | NUR ---
RADAMES RAMIREZ admitted to room 508-1, with an admitting diagnosis of MALIGNANT HYPERTENSION, ACUTE COUGH WITH HEMOPTYSIS, CHF, ELEVATED TROPONIN on 09/19/19 from ER via WHEELCHAIR, accompanied by MIKE AGUILAR. RADAMES SINGLETON introduced to surroundings, call light, bed controls, phone, TV, temperature control, lights, meal times, smoking policy, visitor policy, side rail policy, bathrooms and showers. Patient Rights given to patient in the handbook. RADAMES SINGLETON verbalizes understanding that [facility] is not responsible for the loss or damage to any personal effects or valuables that are kept in the patients possession during their hospitalization. RADAMES SINGLETON verbalizes understanding of Interdisciplinary Patient Education. Patient and/or family were informed about the Rapid Response Team and its purpose.
--- NOTE | 2019-09-19 04:30 | NUR ---
TELEMETRY ORDERED ON ADMITTING ORDER SHEET. DR. CARDONA MADE AWARE THAT NO TELEMETRY UNITS IN THE HOSPITAL ARE AVAILABLE AND DR. CARDONA STATED "THAT'S FINE."
[2019-09-19] MEDS ORDERED: PROMETHAZINE/ CODEINE SYRUP 5 ML UDC PO PRN (05:00)
[2019-09-19] MEDS ORDERED: BENZONATATE 100 MG (TESSALON) CAPSULE PO PRN (05:00)
[2019-09-19] MEDS ORDERED: LABETALOL HCL 20 MG/4 ML VIAL IV PRN (05:00)
[2019-09-19 05:15] VITALS: BP 246/188
[2019-09-19] MEDS: methylPREDNISolone 40 MG/ML (Solu-MEDROL) VIAL IV SCH ×2 (06:07→11:09)
--- NOTE | 2019-09-19 06:43 | Pulmonary Consultation ---
History of Present Illness History of Present Illness Date Seen by Provider: Sep 19, 2019 Time Seen by Provider: 10:55 Date of Admission History of Present Illness 39yo presented to ED secondary to worsening cough over last 2 wks and has progressed to hemoptysis. He denies any fever, chills, recent illness. Pt follows with nephrology in [place] for CKD. He also follows with hematology for thrombocytopenia. I am consulted for pulmonary management. Allergies and Home Medications Allergies Coded Allergies: No Known Drug Allergies (Unverified , 10/21/15) Home Medications Amlodipine Besylate 10 Mg Tablet, 10 MG PO DAILY, (Reported) LAST FILLED #30 01-13-18 Atenolol 50 Mg Tablet, 50 MG PO DAILY PRN for BLOOD PRESSURE, (Reported) LAST FILLED #30 01-13-18 Calcitriol 0.5 Mcg Capsule, 0.5 MCG PO DAILY, (Reported) Past Ucqihtr-Xatmyl-Aedmqh Hx Patient Social History Alcohol Use: Occasionally Uses Alcohol Beverage of Choice: Beer Recreational Drug Use: No Smoking Status: Former Smoker Type Used: Cigarettes Former Smoker, Quit: Jul 04, 2019 Recent Foreign Travel: No Contact w/Someone Who Travel: No Recent Infectious Disease Expo: No Recent Hopitalizations: Yes (11/2018 FRACTURED RIBS) Physical Abuse: No Sexual Abuse: No Mistreated: No Fear: No Immunizations Up To Date PED Vaccines UTD: No Seasonal Allergies Seasonal Allergies: No Past Medical History Surgeries: No Eye Surgery Respiratory: No Currently Using CPAP: No Currently Using BIPAP: No Cardiac: No Hypertension Neurological: No Reproductive Disorders: No Sexually Transmitted Disease: No HIV/AIDS: No Genitourinary: No Renal Failure Gastrointestinal: No Musculoskeletal: No Endocrine: No HEENT: Yes (BILATERALLY LEGALLY BLIND) Loss of Vision: Denies Cancer: No Psychosocial: No Integumentary: No Blood Disorders: No Adverse Reaction/Blood Tranf: No Sepsis Event Evaluation Height, Weight, BMI Height: 6'1.00" Weight: 235lbs. oz. 106.058869ce; 32.78 BMI Method:Stated Exam Exam Vital Signs Date Time Temp Pulse Resp B/P (MAP) Pulse Ox O2 Delivery O2 Flow Rate FiO2 09/19/19 05:35 Room Air 09/19/19 05:15 36.2 130 91 21 09/19/19 04:22 96 Room Air 09/19/19 04:22 36.3 96 18 181/121 (141) 96 Room Air 09/19/19 03:50 36.2 130 20 157/92 (207) 97 Nasal Cannula 3.00 09/19/19 00:47 92 Nasal Cannula 3.00 09/19/19 00:07 Room Air 09/18/19 23:57 36.2 130 246/188 (207) Room Air I & O 09/19/19 07:00 Intake Total 260 ml Balance 260 ml Height & Weight Height: 6'1.00" Weight: 235lbs. oz. 106.969603vv; 32.78 BMI Method:Stated Capillary Refill: Less Than 3 Seconds Gastrointestinal: non tender, soft Results Lab Laboratory Tests 09/19/19 00:02 Assessment/Plan Assessment/Plan LLL PNA - LLL with acute bronchitis -Currently on Rocephin and azithromycin -Pt pt goes home can switch to Augmentin and Azithromycin. Have pt f/u with in 4-6wks. Order placed for RN to make appt. -Pt wants to go home -CT of chest reviewed No hemoptysis since admission -Probably secondary to acute bronchitis -Will need out pt CT scan in about 8 wks -If hemoptyis returns will need bronchoscopy CKD -Follows with nephrology NSTEMI -Cardiology following Hx of tobacco use HTN -MOnitor TREY CARDONA DO Sep 19, 2019 06:43 POS
[2019-09-19 06:57] LABS: BASOPHILS % (AUTO) 0 % (0-10); EOSINOPHILS % (AUTO) 0 % (0-10); HEMATOCRIT 43 % (40-54); HEMOGLOBIN 15.4 G/DL (13.3-17.7); LYMPHOCYTES # (AUTO) 0.5 X 10^3 (1.0-4.0); LYMPHOCYTES % (AUTO) 5 % (12-44); MEAN CORPUSCULAR HEMOGLOBIN 31 PG (25-34); MEAN CORPUSCULAR HGB CONC 36 G/DL (32-36); MEAN CORPUSCULAR VOLUME 86 FL (80-99); MEAN PLATELET VOLUME 8.4 FL (7.4-10.4); MONOCYTES # (AUTO) 0.1 X 10^3 (0.0-1.0); MONOCYTES % (AUTO) 1 % (0-12); NEUTROPHILS # (AUTO) 10.5 X 10^3 (1.8-7.8); NEUTROPHILS % (AUTO) 95 % (42-75); PLATELET COUNT 110 10^3/uL (130-400)
--- NOTE | 2019-09-19 07:02 | Diagnostic Imaging Report ---
PROCEDURE: CT chest without contrast. TECHNIQUE: Multiple contiguous axial images were obtained through the chest without the use of intravenous contrast. Auto Exposure Controls were utilized during the CT exam to meet ALARA standards for radiation dose reduction. DATE: September 19, 2019. COMPARISON: Chest radiograph September 19, 2019. CT chest and abdomen December 14, 2018 INDICATION: 39-year-old male, hemoptysis. PROCEDURE: Axial noncontrasted CT images of the chest. Noncontrasted limits the evaluation of the mediastinum and vascular structures. FINDINGS: There is tree-in-bud nodularity in the left upper lobe. There is tree-in-bud nodularity in the left lower lobe. There is very subtle tree-in-bud nodularity in the right lower lobe, right upper lobe, and right middle lobe. There is no pneumothorax. There is no pleural effusion. The central airways are patent. The heart is not enlarged. There is no pericardial effusion. There is no identified abnormally enlarged mediastinal or axillary lymph node which meets CT size criteria for adenopathy. Imaged portions of the upper abdomen are grossly unremarkable. There is no identified acute bony abnormality. IMPRESSION: 1. Multifocal tree-in-bud nodularity within the lungs bilaterally. This likely relates to a process spreading via endobronchial means. An infectious bronchiolitis would be the favored differential diagnostic consideration. Atypical infectious etiologies are in the differential diagnosis. Aspiration would be an additional differential consideration. Report was called to Dr. Melton by vivi at 7:20 am. Dictated by: Dictated on workstation # [id number]
[2019-09-19 07:17] LABS: ALBUMIN 4.2 GM/DL (3.2-4.5); BILIRUBIN,TOTAL 0.6 MG/DL (0.1-1.0); CALCIUM 8.2 MG/DL (8.5-10.1); CREATININE SERUM 1.94 MG/DL (0.60-1.30); POTASSIUM 3.3 MMOL/L (3.6-5.0); TOTAL PROTEIN 7.6 GM/DL (6.4-8.2)
[2019-09-19 07:21] LABS: BAND NEUTROPHILS 2 %; BASOPHILS % (MANUAL) 0 %; EOSINOPHILS % (MANUAL) 0 %; LYMPHOCYTES % (MANUAL) 5 %; MONOCYTES % (MANUAL) 0 %; NEUTROPHILS % (MANUAL) 93 %; RBC MORPH NORMAL
[2019-09-19 07:48] VITALS: BP 182/116
[2019-09-19] MEDS ORDERED: hydrALAZINE (APESOLINE) 20 MG/ML VIAL IV PRN (08:15)
--- NOTE | 2019-09-19 08:28 | Diagnostic Imaging Report ---
EXAMINATION: Chest radiograph, portable AP view. DATE: 09/19/2019 12:47 AM hours. INDICATION: 39-year-old male, hemoptysis. FINDINGS: Heart size appears to be within normal limits. Additional mediastinal contours are unremarkable. There is no identified pneumothorax. There is no large pleural effusion. There is no radiographically appreciable focal airspace consolidation. Subsequently performed CT chest is available at time of dictation of this radiograph. There is note of multifocal tree-in-bud nodularity on CT chest imaging. IMPRESSION: 1. Subsequently performed CT chest is available at time of dictation of this radiograph. There are multifocal tree-in-bud nodular opacities on CT chest imaging which are not radiographically visible. Primary differential diagnostic considerations would include an infectious bronchiolitis including atypical infectious etiologies and aspiration. 2. Radiographically, there is no visible abnormality. Dictated by: Dictated on workstation # [id number]
--- NOTE | 2019-09-19 08:52 | Diagnostic Imaging Report ---
PROCEDURE: CT neck soft tissue without contrast. TECHNIQUE: Multiple contiguous axial images were obtained through the neck without the use of intravenous contrast. Auto Exposure Controls were utilized during the CT exam to meet ALARA standards for radiation dose reduction. DATE: September 19, 2019. INDICATION: 39-year-old male, hemoptysis. COMPARISON: None. FINDINGS: Please see separately dictated CT chest report for findings within the thorax. The right lobe of the thyroid is asymmetrically prominent. There are low-attenuation nodules in the right lobe of the thyroid measuring up to approximately 9 mm in size. The bilateral parotid and submandibular glands are unremarkable in appearance. There is no identified pronounced narrowing of the airway. There is no obvious mass along the airway on noncontrast imaging evaluation. There is no otherwise identified soft tissue mass at the level of the neck. There is no identified cervical lymph node specifically meeting CT size criteria for adenopathy. The orbits are grossly unremarkable in appearance. There are concavities of the endplates at the levels of C6, C7, and T1. These appear most likely chronic. IMPRESSION: 1. No acute abnormality at the level of the neck. 2. Asymmetric prominence of the right lobe of the thyroid with subcentimeter right thyroid nodules. Dictated by: Dictated on workstation # [id number]
--- NOTE | 2019-09-19 09:48 | Diagnostic Imaging Report ---
EXAMINATION: Portable erect AP chest at 7:37 AM. INDICATION: Malignant hypertension, cough. FINDINGS: There is shallow inspiration when compared to the prior exam performed earlier today at 12:18 AM. Allowing for this technical factor, there does not appear to have been any significant change since the prior exam. The heart is stable in size. The multifocal tree in bud nodular opacities seen on the CT chest exam performed in the interval since the prior study are difficult to appreciate on this study. The lungs seem generally clear aside from a vague area of slightly increased density in the periphery of the left upper lung. There is no pleural effusion identified. The mediastinum is not widened. The osseous structures are intact. IMPRESSION: Stable chest. There has been no significant change since the prior exam. Dictated by: Dictated on workstation # [id number]
--- NOTE | 2019-09-19 09:51 | Diagnostic Imaging Report ---
PROCEDURE: US Venous Lower Ext Kermit. TECHNIQUE: Multiple real-time grayscale images were obtained over the lower extremities in various projections, bilaterally. Additional duplex Doppler and color Doppler images were also obtained. INDICATION: Malignant hypertension. COMPARISON: None FINDINGS: The bilateral common femoral vein, femoral vein, deep femoral vein, and popliteal vein are normal in appearance. These vessels show normal compressibility, color flow and doppler augmentation. The visualized deep calf veins demonstrate no distinct intraluminal thrombus. IMPRESSION: 1. No sonographic evidence of deep venous thrombosis in the bilateral lower extremities. Dictated by: Dictated on workstation # [id number]
[2019-09-19] MEDS ORDERED: ATEN50TA PO (09:53)
[2019-09-19] MEDS ORDERED: AMLO10TA7 PO ×2 (09:53→14:44)
[2019-09-19] MEDS ORDERED: CALC0.5C11 PO (09:53)
[2019-09-19] MEDS ORDERED: RT-ALBUTEROL SULF 2.5 MG/3 ML PRE-MIX VIAL INH PRN (10:00)
--- NOTE | 2019-09-19 10:08 | Consultation-Cardiology ---
HPI-Cardiology Cardiology Consultation: Date of Consultation 09/19/19 Time Seen by a Provider: 10:00 Date of Admission 09-18-19 Attending Physician Rosa Saxena MD Admitting Physician Raj Dinero MD Consulting Physician Gio Garzon MD HPI: Chief Complaint: Uncontrolled HTN Mr. Singleton is a 39 year old male admitted to [facility] from the ED with c/o cough with hemoptysis. His father is at the bedside. He states he has had a cough for the last couple weeks, but while at work yesterday it became increasingly worse to the point that he was coughing up bright red blood. He denies any fever, chills, recent illness. He denies any SOB, palpitations, CP, syncope or near syncope. He states his cough has improved this morning. No further hemoptysis. He reports he has chronic high blood pressure and h/o "kidney damage". He follows with nephrology services in [place], Dr. Moralez. He reports chronic low platelet count for which he sees Dr. Fulton of hematology services at [facility]. He states he takes Norvasc daily and Atenolol PRN for HTN. He reports chronic R LE swelling, which is unchanged. Review of Systems-Cardiology Review of Systems Constitutional: No chills, No fever, No malaise Eyes: No vision change Ears/Nose/Throat: No epistaxis, No recent hearing loss Respiratory: As described under HPI Cardiovascular: As described under HPI Gastrointestinal: No constipation, No diarrhea, No nausea, No vomiting Genitourinary: No dysuria Musculoskeletal: no symptoms reported Skin: No rash on exposed areas, No ulcerations on exposed areas Psychiatric/Neurological: No anxiety, No depression, No seizure, No focal weakness, No syncope Hematologic: No bleeding abnormalities HCC-Xooqoo-Gfemxk Hx Patient Social History Alcohol Use: Occasionally Uses Recreational Drug Use: No Smoking Status: Former Smoker Type Used: Cigarettes Recent Foreign Travel: No Recent Infectious Disease Expo: No Hospitalization with Isolation: Denies Physical Abuse Screen: No Sexual Abuse: No Past Medical History PMH As described under Assessment. Family Medical History Family Medical History: He denies any family h/o CAD. He reports his father has HTN. Allergies and Home Medications Allergies Coded Allergies: No Known Drug Allergies (Unverified , 10/21/15) Home Medications Amlodipine Besylate 10 Mg Tablet, 10 MG PO DAILY LAST FILLED #30 01-13-18 Prescribed by: ROSA SAXENA on 09/19/19 1444 Calcitriol 0.5 Mcg Capsule, 0.5 MCG PO DAILY, (Reported) Cefdinir 300 Mg Capsule, 300 MG PO BID Prescribed by: THOMAS HURTADO on 09/19/19 1504 Metoprolol Succinate 100 Mg Tab.er.24h, 100 MG PO DAILY Prescribed by: ROSA SAXENA on 09/19/19 1444 Patient Home Medication List Home Medication List Reviewed: Yes Physical Exam-Cardiology Physical Exam Vital Signs/I&O Capillary Refill : Less Than 3 Seconds Constitutional: AAO x 3, well-developed, well-nourished HEENT: other (poor dentition), hearing is well preserved Neck: No carotid bruit; carotid pulses are 2 + bilaterally Respiratory: No accessory muscle use, No respiratory distress; chest expansion is symmetric, chest is bilaterally symmetric, lungs clear to auscultation Cardiovascular: regular rate-rhythm; No JVD; S1 and S2 Gastrointestinal: No tender; soft, round, audible bowel sounds Extremities: no lower extremity edema bilateral Neurologic/Psychiatric: grossly intact Skin: No rash on exposed areas, No ulcerations on exposed areas Data Review Labs Microbiology 09/19/19 Urine Culture - Final, Complete 3 or more isolates 09/19/19 Blood Culture - Final, Complete Staph, Coag Neg (PROGRAM OR PROJECT ADMINISTRATOR) See Comments 09/19/19 Influenza Types A,B Antigen (YISSEL) - Final, Complete Radiology NAME: RADAMES SINGLETON [facility] REC#: [id number] PT STATUS: ADM IN : 1980 PHYSICIAN: GIOVANNI FRANKLIN DO ADMIT DATE: 09/19/19/[facility] Signed Date of Exam:09/19/19 CT CHEST WO PROCEDURE: CT chest without contrast. TECHNIQUE: Multiple contiguous axial images were obtained through the chest without the use of intravenous contrast. Auto Exposure Controls were utilized during the CT exam to meet ALARA standards for radiation dose reduction. DATE: September 19, 2019. COMPARISON: Chest radiograph September 19, 2019. CT chest and abdomen December 14, 2018 INDICATION: 39-year-old male, hemoptysis. PROCEDURE: Axial noncontrasted CT images of the chest. Noncontrasted limits the evaluation of the mediastinum and vascular structures. FINDINGS: There is tree-in-bud nodularity in the left upper lobe. There is tree-in-bud nodularity in the left lower lobe. There is very subtle tree-in-bud nodularity in the right lower lobe, right upper lobe, and right middle lobe. There is no pneumothorax. There is no pleural effusion. The central airways are patent. The heart is not enlarged. There is no pericardial effusion. There is no identified abnormally enlarged mediastinal or axillary lymph node which meets CT size criteria for adenopathy. Imaged portions of the upper abdomen are grossly unremarkable. There is no identified acute bony abnormality. IMPRESSION: 1. Multifocal tree-in-bud nodularity within the lungs bilaterally. This likely relates to a process spreading via endobronchial means. An infectious bronchiolitis would be the favored differential diagnostic consideration. Atypical infectious etiologies are in the differential diagnosis. Aspiration would be an additional differential consideration. Report was called to Dr. Melton by vivi at 7:20 am. Dictated by: Dictated on workstation # [id number] Dict: 09/19/19633 Trans: 09/19/19928 [facility] [id number] Interpreted by: MENDEL SANTANA MD Electronically signed by: MENDEL SANTANA MD 09/19/19928 NAME: RADAMES SINGLETON [facility] REC#: [id number] PT STATUS: ADM IN : 1980 PHYSICIAN: GIOVANNI FRANKLIN DO ADMIT DATE: 09/19/19/[facility] Signed Date of Exam:09/19/19 CHEST 1 VIEW, AP/PA ONLY EXAMINATION: Chest radiograph, portable AP view. DATE: 09/19/2019 12:47 AM hours. INDICATION: 39-year-old male, hemoptysis. FINDINGS: Heart size appears to be within normal limits. Additional mediastinal contours are unremarkable. There is no identified pneumothorax. There is no large pleural effusion. There is no radiographically appreciable focal airspace consolidation. Subsequently performed CT chest is available at time of dictation of this radiograph. There is note of multifocal tree-in-bud nodularity on CT chest imaging. IMPRESSION: 1. Subsequently performed CT chest is available at time of dictation of this radiograph. There are multifocal tree-in-bud nodular opacities on CT chest imaging which are not radiographically visible. Primary differential diagnostic considerations would include an infectious bronchiolitis including atypical infectious etiologies and aspiration. 2. Radiographically, there is no visible abnormality. Dictated by: Dictated on workstation # [id number] Dict: 09/19/1941 Trans: 09/19/19927 [facility] [id number] Interpreted by: MENDEL SANTANA MD Electronically signed by: MENDEL SANTANA MD 09/19/19927 NAME: RADAMES SINGLETON [facility] REC#: [id number] PT STATUS: ADM IN : 1980 PHYSICIAN: ROSA SAXENA MD ADMIT DATE: 09/19/19/[facility] Signed Date of Exam:09/19/19 US VENOUS LOWER EXT KIKI PROCEDURE: US Venous Lower Ext Kiki. TECHNIQUE: Multiple real-time grayscale images were obtained over the lower extremities in various projections, bilaterally. Additional duplex Doppler and color Doppler images were also obtained. INDICATION: Malignant hypertension. COMPARISON: None FINDINGS: The bilateral common femoral vein, femoral vein, deep femoral vein, and popliteal vein are normal in appearance. These vessels show normal compressibility, color flow and doppler augmentation. The visualized deep calf veins demonstrate no distinct intraluminal thrombus. IMPRESSION: 1. No sonographic evidence of deep venous thrombosis in the bilateral lower extremities. Dictated by: Dictated on workstation # [id number] Dict: 09/19/1946 Trans: 09/19/19949 [facility] [id number] Interpreted by: MAHESH UTRNER DO Electronically signed by: MAHESH TURNER DO 09/19/19949 ECG Impression ECG Comment SR with LVH A/P-Cardiology Assessment/Admission Diagnosis Uncontrolled hypertension Hemoptysis with poss pneumonia - management per pulmonary services Elevated troponin, likely Type 2 VA secondary to uncontrolled HTN Chronic thrombocytopenia - follows with Dr. Fulton of [place] hematology services CKD 3 - follows with Dr. Moralez of nephrology services Hypothyroidism - replacement Hypokalemia - replace Discussion and Recomendations Uncontrolled hypertension with tachycardia - start BB for BP and rate control Replace electrolytes Echocardiogram to eval structure and function Management of hemoptysis/pneumonia is per pulmonary services Monitor lab closely Further recs will be based on his hospital course We would like to thank medical services for this consult Clinical Quality Measures DVT/VTE Risk/Contraindication: Risk Factor Score Per Nursin RFS Level Per Nursing on Admit: 1=Low/No VTE PPX Physician Assessment Physician Assessment Pt left before I could see him MIESHA LUCAS CERTIFIED PHYSICIAN ASSISTANT Sep 19, 2019 10:08 GIO GARZON MD FACP [facility] Oct 10, 2019 11:55
--- NOTE | 2019-09-19 10:38 | NUR ---
PATIENT STATES HE TAKES ATENOLOL NEEDED FOR BLOOD PRESSURE, AMLODIPINE DAILY, AND ANOTHER MEDICATION HE CAN NOT REMEMBER THE NAME OF. I CALLED [facility] TO VERIFY. D[facility]ONS FILLED: 08-18-19 CALCITRIOL 0.5MCG DAILY #30 01-13-18 ATENOLOL 50MG DAILY #30 (STATES HE ONLY TAKES PRN) 01-13-18 AMLODIPINE 10MG DAILY #30 HE IS SIGNIFICANTLY PAST DUE FOR REFILL ON THE TWO BLOOD PRESSURE MEDICATIONS. WHEN I ASKED HIM ABOUT THIS HE STATES HE DOES TAKE THEM AND FEELS HE HAD THEM FILLED RECENTLY. I LEFT THEM ON THE MED REC AND NOTED THE PAST DUE FILL DATE. I ALSO INFORMED MIESHA STODDARDCHON OF THE PAST DUE FILL DATES. I CALLED DR. MARSH'S OFFICE AND THEY STATE THEY HAVE NOT SEEN THE PATIENT SINCE DECEMBER OF THIS YEAR. THEY FAXED OVER A MEDICATION LIST AND IT APPEARS THEY PRESCRIBED ATENOLOL 100MG DAILY 12-20-18 HOWEVER [facility] DOES NOT HAVE RECORD OF THAT. THE PATIENT IS ADAMANT HE DOES NOT USE ANY OTHER PHARMACY BESIDES [facility]. DR. MARSH'S OFFICE ALSO VERIFIED THEY HAVE DILLONS ON FILE AT THEIR OFFICE. IN ADDITION TO THE THREE MEDS THE PATIENT REPORTED HE IS TAKING DR. MARSH'S MED LIST ALSO STATES CLONIDINE 0.1MG TID HOWEVER IT HAS NOT BEEN FILLED RECENTLY AND THE PATIENT DID NOT REPORT TAKING IT.
[2019-09-19] MEDS ORDERED: meTOprolol SUCCINATE 100 MG (TOPROL XL) TAB PO NR (10:45)
[2019-09-19] MEDS ORDERED: KCL 20 MEQ TAB (K-DUR) PO NR (10:45)
[2019-09-19 11:29] VITALS: BP 182/116
[2019-09-19 11:42] VITALS: BP 185/118
--- NOTE | 2019-09-19 14:08 | Diagnostic Imaging Report ---
INDICATION: Acute cough and hemoptysis. Patient was administered 44 mCi technetium 99 DTPA from the nebulizer and imaging over the chest was performed. Next, patient was administered 5.4 mCi technetium 99m MAA intravenously and imaging over the chest was performed in multiple obliquities. There is a moderate to large-sized ventilation defect in the left upper lobe with slightly smaller associated perfusion defect at this location. The right lung demonstrates fairly homogeneous ventilation and perfusion. No large pleural-based perfusion defects are seen. IMPRESSION: A ventilation defect in the left upper lobe without significant perfusion defect. Findings are consistent with low probability for pulmonary embolism. Dictated by: Dictated on workstation # [id number]
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
[2019-09-19] MEDS ORDERED: METO-395 PO (14:44)
--- NOTE | 2019-09-19 14:46 | Discharge Summary ---
Discharge Summary Hospital Course Was the Problem List Reviewed?: Yes Final Diagnosis: 1.accelerated hypertension. 2.hemoptysis. 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 Hospital Course Date of Admission: Sep 19, 2019 at 02:30 Admission Diagnosis : Family Physician/Provider: Raj Dinero MD Date of Discharge: 09/19/19 Discharge Diagnosis: [ ] Hospital Course: [ ] Labs and Pending Lab Test: Laboratory Tests 09/19/19 00:02: White Blood Count 7.3, Red Blood Count 5.21, Hemoglobin 16.0, Hematocrit 45, Mean Corpuscular Volume 87, Mean Corpuscular Hemoglobin 31, Mean Corpuscular Hemoglobin Concent 35, Red Cell Distribution Width 13.9, Platelet Count 123L, Mean Platelet Volume 9.0, Neutrophils (%) (Auto) 64, Lymphocytes (%) (Auto) 26, Monocytes (%) (Auto) 6, Eosinophils (%) (Auto) 3, Basophils (%) (Auto) 0, Neutrophils # (Auto) 4.7, Lymphocytes # (Auto) 1.9, Monocytes # (Auto) 0.4, Eosinophils # (Auto) 0.2, Basophils # (Auto) 0.0, Prothrombin Time 13.4, INR Comment 1.0, Activated Partial Thromboplast Time 30, Sodium Level 139, Potassium Level 3.7, Chloride Level 104, Carbon Dioxide Level 22, Anion Gap 13, Blood Urea Nitrogen 32H, Creatinine 1.93H, Estimat Glomerular Filtration Rate 39, BUN/Creatinine Ratio 17, Glucose Level 136H, Calcium Level 8.6, Corrected Calcium 8.4L, Total Bilirubin 0.6, Aspartate Amino Transf (AST/SGOT) 24, Alanine Aminotransferase (ALT/SGPT) 18, Alkaline Phosphatase 94, Total Protein 7.9, Albumin 4.3 09/19/19 00:15: Erythrocyte Sedimentation Rate 2, D-Dimer 0.40, Magnesium Level 2.1, Troponin I 0.209H, C-Reactive Protein High Sensitivity 0.22, B-Type Natriuretic Peptide 487.9H, Serum Alcohol < 10 09/19/19 00:21: Blood Gas Puncture Site RIGHT RADIAL, Blood Gas Patient Temperature 36.2, Arterial Blood pH 7.35L, Arterial Blood Partial Pressure CO2 51H, Arterial Blood Partial Pressure O2 66L, Arterial Blood HCO3 27, Arterial Blood Total CO2 28.7, Arterial Blood Oxygen Saturation 93L, Arterial Blood Base Excess 1.7, Aurelio Test YES-POS, Blood Gas Ventilator Setting NO, Blood Gas Inspired Oxygen 2L 09/19/19 00:26: Lactic Acid Level 0.90 09/19/19 01:55: Urine Color YELLOW, Urine Clarity CLEAR, Urine pH 6.0, Urine Specific [place] 1.020, Urine Protein 2+H, Urine Glucose (UA) NEGATIVE, Urine Ketones NEGATIVE, Urine Nitrite NEGATIVE, Urine Bilirubin NEGATIVE, Urine Urobilinogen 0.2, Urine Leukocyte Esterase TRACE, Urine RBC (Auto) TRACE-I, Urine RBC 0-2, Urine WBC 5- 10H, Urine Squamous Epithelial Cells 0-2, Urine Crystals NONE, Urine Bacteria FEWH, Urine Casts PRESENT, Urine Hyaline Casts 2-5H, Urine Mucus SMALLH, Urine Culture Indicated YES, Urine Opiates Screen NEGATIVE, Urine Oxycodone Screen NEGATIVE, Urine Methadone Screen NEGATIVE, Urine Propoxyphene Screen NEGATIVE, Urine Barbiturates Screen NEGATIVE, Ur Tricyclic Antidepressants Screen NEGATIVE, Urine Phencyclidine Screen NEGATIVE, Urine Amphetamines Screen NEGATIVE, Urine Methamphetamines Screen NEGATIVE, Urine Benzodiazepines Screen NEGATIVE, Urine Cocaine Screen NEGATIVE, Urine Cannabinoids Screen NEGATIVE 09/19/19 06:30: HIV (1&2) Ag and Ab Screen Referral [Pending] 09/19/19 06:50: White Blood Count 11.0, Red Blood Count 4.99, Hemoglobin 15.4, Hematocrit 43, Mean Corpuscular Volume 86, Mean Corpuscular Hemoglobin 31, Mean Corpuscular Hemoglobin Concent 36, Red Cell Distribution Width 14.0, Platelet Count 110L, Mean Platelet Volume 8.4, Neutrophils (%) (Auto) 95H, Lymphocytes (%) (Auto) 5L, Monocytes (%) (Auto) 1, Eosinophils (%) (Auto) 0, Basophils (%) (Auto) 0, Neutrophils # (Auto) 10.5H, Lymphocytes # (Auto) 0.5L, Monocytes # (Auto) 0.1, Eosinophils # (Auto) 0.0, Basophils # (Auto) 0.0, Neutrophils % (Manual) 93, Lymphocytes % (Manual) 5, Monocytes % (Manual) 0, Eosinophils % (Manual) 0, Basophils % (Manual) 0, Band Neutrophils 2, Blood Morphology Comment NORMAL, Sodium Level 137, Potassium Level 3.3L, Chloride Level 99, Carbon Dioxide Level 22, Anion Gap 16H, Blood Urea Nitrogen 47H, Creatinine 1.94H, Estimat Glomerular Filtration Rate 39, BUN/Creatinine Ratio 24, Glucose Level 205H, Calcium Level 8.2L, Corrected Calcium 8.0L, Total Bilirubin 0.6, Aspartate Amino Transf (AST/SGOT) 22, Alanine Aminotransferase (ALT/SGPT) 17, Alkaline Phosphatase 83, Troponin I 0.192H, Total Protein 7.6, Albumin 4.2, Procalcitonin 0.19H, Anti- Nuclear Antibody Screen [Pending], Anti-Neutrophil Cytoplasmic Ab [Pending] 09/19/19 12:10: Troponin I 0.142H Microbiology 09/19/19 Influenza Types A,B Antigen (YISSEL) - Final, Complete Home Meds Active Reported Calcitriol 0.5 Mcg Capsule 0.5 Mcg PO DAILY Amlodipine Besylate 10 Mg Tablet 10 Mg PO DAILY LAST FILLED #30 01-13-18 Atenolol 50 Mg Tablet 50 Mg PO DAILY PRN LAST FILLED #30 01-13-18 Assessment/Pt Instructions Admission diagnosis: Accelerated hypertension. 2.hemoptysis. 3.chronic hypertension Discharge Instructions Discharge Diet: Low Sodium Diet Activity as Tolerated: Yes Pneumonia Vaccine Order Indica: Yes Discharge Physical Examination General Appearance: Alert, Oriented X3 Allergies: Coded Allergies: No Known Drug Allergies (Unverified , 10/21/15) Discharge Summary Date of Admission Sep 19, 2019 at 02:30 Date of Discharge Admission Diagnosis Accelerated hypertension. 2.chronic renal disease. 3.significant hemoptysis. 4.mild thrombocytopenia Clinical Quality Measures DVT/VTE Risk/Contraindication: Risk Factor Score Per Nursin RFS Level Per Nursing on Admit: 1=Low/No VTE PPX ROSA SAXENA MD Sep 19, 2019 14:46
[2019-09-19] MEDS ORDERED: CEFD300C3 PO (15:04)
[2019-09-19] MEDS ORDERED: RT-ALBUTEROL SULF 2.5 MG/3 ML PRE-MIX VIAL INH SCH (21:00)
[2019-09-20] MEDS ORDERED: cefTRIAXone FOR IV USE 1,000 MG in WATER (STERILE) FOR INJECTION 10 ML IV SCH (03:00)
[2019-09-20] MEDS ORDERED: meTOprolol SUCCINATE 100 MG (TOPROL XL) TAB PO SCH (09:00)
[2019-09-20] MEDS ORDERED: AZITHROMYCIN 250 MG TAB (ZITHROMAX) PO SCH (09:00)
--- NOTE | 2019-09-21 17:44 | Physician Query Clarification ---
PQ-Uncertain Diagnosis Admission/Discharge Admission Date: Sep 19, 2019 at 02:30 Discharge Date: Sep 19, 2019 at 15:30 The medical record reflects the following clinical scenario: History/Risk Factors: hemoptysis Clinical Finding: pneumonia/bronchitis Treatment: Rocephin, Vancomycin Question: Is pneumonia a clinically valid diagnosis? pneumonia was documented in the Dr. Hancock's consult with no further documentation in the medical record. Please document a response in Progress Note or Discharge Summary. 1. Yes, clinically valid, condition resolved. 2. No, condition ruled out. 3. Other, with explanation of clinical findings. 4. Undetermined, no explanation for clinical findings. PHYSICIAN RESPONSE Diagnosis clinically valid: Yes, Conditon resolved Please remember a lack of response to the above will prompt a phone page by CDI/Coding staff. In responding to this query, please exercise your independent professional judgment. The purpose of this communication is to more accurately reflect the complexity of your patients condition. The fact that a question is asked does n ot imply that any particular answer is desired or expected. Thank you for your timely response to this clarification. Requestors name: Jessica Rivera THIS PHYSICIAN QUERY FORM IS A PERMANENT PART OF THE MEDICAL RECORD JESSICA CMCONNELL Sep 21, 2019 17:44 ROSA SAXENA MD Oct 09, 2019 12:34
--- NOTE | 2019-09-21 17:48 | Physician Query Clarification ---
PQ-Uncertain Diagnosis Admission/Discharge Admission Date: Sep 19, 2019 at 02:30 Discharge Date: Sep 19, 2019 at 15:30 The medical record reflects the following clinical scenario: History/Risk Factors: Hypertension Clinical Findings: Hypertension, elevated troponin Treatment: Monitor and control blood pressure Question: Is Type 2 myocardial infarction a clinically valid diagnosis? Type 2 myocardial infarction was documented in the [facility] consult with no further documentation in the medical record. Please document a response in Progress Note or Discharge Summary. 1. Yes, clinically valid, condition resolved. 2. No, condition ruled out. 3. Other, with explanation of clinical findings. 4. Undetermined, no explanation for clinical findings. PHYSICIAN RESPONSE Diagnosis clinically valid: Yes, Conditon resolved Please remember a lack of response to the above will prompt a phone page by CDI/Coding staff. In responding to this query, please exercise your independent professional judgment. The purpose of this communication is to more accurately reflect the complexity of your patients condition. The fact that a question is asked does not imply that any particular answer is desired or expected. Thank you for your timely response to this clarification. Requestors name: Jessica Rivera THIS PHYSICIAN QUERY FORM IS A PERMANENT PART OF THE MEDICAL RECORD JESSICA MCCONNELL Sep 21, 2019 17:48 ROSA SAXENA MD Oct 09, 2019 12:35
== END 2019-09-19 15:30 | disposition home or self-care (01) | DRG 682 ==
LOC: EDUNIT# 23:45 → ER 23:48 → CSD 09-19 02:30
PROVIDERS: ADMIT Internal Medicine; ATTEND Internal Medicine
DX: I12.9 Hypertensive chronic kidney disease with stage 1 through stage 4 chronic kidney disease, or unspecified chronic kidney disease (principal); J18.1 Lobar pneumonia, unspecified organism; I21.A1 Myocardial infarction type 2; R04.2 Hemoptysis; N18.3 Chronic kidney disease, stage 3 (moderate); J20.9 Acute bronchitis, unspecified; D69.6 Thrombocytopenia, unspecified; R00.0 Tachycardia, unspecified; E03.9 Hypothyroidism, unspecified; E87.6 Hypokalemia; H54.8 Legal blindness, as defined in USA; Z87.891 Personal history of nicotine dependence
CPT/HCPCS: 36415; 70490; 71045; 71250; 78582; 80053; 80306; 80320; 81000; 82805; 83605; 83735; 83880; 84145; 84484; 85007; 85025; 85027; 85379; 85610; 85652; 85730; 86021; 86038; 86039; 86141; 86703; 87040; 87088; 87804; 93005; 93041; 93306; 93970; 94640; 94664; 94760; 96365; 96375; 96376

== ENCOUNTER → 2020-03-07 | Outpatient (CLI) | payer SELFPAY ==
[~2020-03-07] MED LIST changes: +AMLO10TA7 PO; +ATEN50TA PO; +CALC0.5C11 PO; +CEFD300C3 PO; +MTP100TCR PO
[2020-03-07 14:10] LABS: HEMOGLOBIN 15.4 G/DL (13.3-17.7); MEAN PLATELET VOLUME 8.5 FL (7.4-10.4); RED CELL DISTRIBUTION WIDTH 13.4 % (10.0-14.5); WHITE BLOOD COUNT 6.1 10^3/uL (4.3-11.0)
[2020-03-07 14:18] LABS: POTASSIUM 4.4 MMOL/L (3.6-5.0)
[2020-03-07 14:19] LABS: ALBUMIN 4.3 GM/DL (3.2-4.5)
[2020-03-07 14:20] LABS: CALCIUM 8.8 MG/DL (8.5-10.1)
[2020-03-07 14:21] LABS: TOTAL PROTEIN 7.8 GM/DL (6.4-8.2)
[2020-03-07 14:23] LABS: BILIRUBIN,TOTAL 0.8 MG/DL (0.1-1.0)
[2020-03-07 14:25] LABS: CREATININE SERUM 2.08 MG/DL (0.60-1.30)
== END ==
LOC: LAB 13:26
PROVIDERS: ATTEND Internal Medicine Nephrology
DX: I12.9 Hypertensive chronic kidney disease with stage 1 through stage 4 chronic kidney disease, or unspecified chronic kidney disease (principal); D63.1 Anemia in chronic kidney disease; N18.3 Chronic kidney disease, stage 3 (moderate); E21.1 Secondary hyperparathyroidism, not elsewhere classified; D69.6 Thrombocytopenia, unspecified
CPT/HCPCS: 36415; 80053; 80061; 84443; 85027

== ENCOUNTER → 2020-10-09 | Outpatient (CLI) | payer SELFPAY ==
[~2020-10-09] MED LIST changes: +AMLO-251 PO; -AMLO10TA7 PO
[2020-10-09 14:34] LABS: BILIRUBIN,URINE NEGATIVE (NEGATIVE); CLARITY,URINE CLEAR; COLOR,URINE YELLOW; GLUCOSE, URINE (UA) NEGATIVE (NEGATIVE); KETONES,URINE NEGATIVE (NEGATIVE); LEUKOCYTE ESTERASE ,URINE 2+ (NEGATIVE); NITRITE,URINE NEGATIVE (NEGATIVE); PROTEIN,URINE 2+ (NEGATIVE)
[2020-10-09 14:46] LABS: BASOPHILS % (AUTO) 1 % (0-10); HEMOGLOBIN 15.3 g/dL (13.3-17.7); MEAN CORPUSCULAR VOLUME 90 fL (80-99)
[2020-10-09 14:48] LABS: EOSINOPHILS # (AUTO) 0.1 10^3/uL (0.0-0.3); EOSINOPHILS % (AUTO) 2 % (0-10); HEMATOCRIT 46 % (40-54); LYMPHOCYTES # (AUTO) 1.1 10^3/uL (1.0-4.0); LYMPHOCYTES % (AUTO) 27 % (12-44); MEAN CORPUSCULAR HEMOGLOBIN 30 pg (25-34); MEAN CORPUSCULAR HGB CONC 34 g/dL (32-36); MEAN PLATELET VOLUME 8.7 fL (9.0-12.2); MONOCYTES # (AUTO) 0.3 10^3/uL (0.0-1.0); MONOCYTES % (AUTO) 8 % (0-12); NEUTROPHILS # (AUTO) 2.7 10^3/uL (1.8-7.8); NEUTROPHILS % (AUTO) 64 % (42-75); PLATELET COUNT 125 10^3/uL (130-400); WHITE BLOOD COUNT 4.3 10^3/uL (4.3-11.0)
[2020-10-09 14:50] LABS: WBC,URINE 25-50 /HPF
[2020-10-09 14:51] LABS: AMORPHOUS SEDIMENT,UR FEW AMOR URATES /LPF; BACTERIA,URINE TRACE /HPF
[2020-10-09 15:03] LABS: ALBUMIN 4.3 GM/DL (3.2-4.5); CALCIUM 8.7 MG/DL (8.5-10.1); CREATININE SERUM 1.85 MG/DL (0.60-1.30); PHOSPHORUS 3.1 MG/DL (2.3-4.7); POTASSIUM 4.3 MMOL/L (3.6-5.0)
== END ==
LOC: LAB 13:53
PROVIDERS: ATTEND Internal Medicine Nephrology
DX: E21.1 Secondary hyperparathyroidism, not elsewhere classified (principal); D63.1 Anemia in chronic kidney disease; N18.30 Chronic kidney disease, stage 3 unspecified; D69.6 Thrombocytopenia, unspecified
CPT/HCPCS: 36415; 80069; 81000; 82306; 82570; 82728; 83540; 83970; 84156; 85025; 87088

== ENCOUNTER → 2021-05-09 | Outpatient (CLI) | payer SELFPAY ==
[2021-05-09 15:25] LABS: BASOPHILS % (AUTO) 0 % (0-10); EOSINOPHILS # (AUTO) 0.2 10^3/uL (0.0-0.3); EOSINOPHILS % (AUTO) 3 % (0-10); HEMATOCRIT 47 % (40-54); LYMPHOCYTES # (AUTO) 1.2 10^3/uL (1.0-4.0); LYMPHOCYTES % (AUTO) 25 % (12-44); MEAN CORPUSCULAR HEMOGLOBIN 32 pg (25-34); MEAN CORPUSCULAR HGB CONC 34 g/dL (32-36); MEAN CORPUSCULAR VOLUME 92 fL (80-99); MEAN PLATELET VOLUME 8.8 fL (9.0-12.2); MONOCYTES # (AUTO) 0.4 10^3/uL (0.0-1.0); MONOCYTES % (AUTO) 8 % (0-12); NEUTROPHILS % (AUTO) 63 % (42-75); PLATELET COUNT 106 10^3/uL (130-400); WHITE BLOOD COUNT 4.7 10^3/uL (4.3-11.0)
[2021-05-09 15:34] LABS: ALBUMIN 4.3 GM/DL (3.2-4.5)
[2021-05-09 15:36] LABS: BILIRUBIN,URINE NEGATIVE (NEGATIVE); CLARITY,URINE CLEAR; COLOR,URINE YELLOW; GLUCOSE, URINE (UA) NEGATIVE (NEGATIVE); KETONES,URINE NEGATIVE (NEGATIVE); LEUKOCYTE ESTERASE ,URINE 2+ (NEGATIVE); NITRITE,URINE NEGATIVE (NEGATIVE); PROTEIN,URINE 2+ (NEGATIVE)
[2021-05-09 15:40] LABS: PHOSPHORUS 2.7 MG/DL (2.3-4.7)
[2021-05-09 15:41] LABS: CREATININE SERUM 1.99 MG/DL (0.60-1.30)
[2021-05-09 15:45] LABS: BACTERIA,URINE FEW /HPF; RBC,URINE 0-2 /HPF; SQUAMOUS EPITHELIAL CELL,UR 0-2 /HPF
== END ==
LOC: LAB 14:38
PROVIDERS: ATTEND Internal Medicine Nephrology
DX: I12.9 Hypertensive chronic kidney disease with stage 1 through stage 4 chronic kidney disease, or unspecified chronic kidney disease (principal); N18.31 Chronic kidney disease, stage 3a; D63.1 Anemia in chronic kidney disease; D69.6 Thrombocytopenia, unspecified; E21.1 Secondary hyperparathyroidism, not elsewhere classified; R60.0 Localized edema
CPT/HCPCS: 36415; 80069; 81000; 82306; 82570; 82607; 82728; 82746; 83540; 83550; 83970; 84156; 85025; 87088

== ENCOUNTER 2021-07-20 02:29 | Emergency (ER) | payer SELFPAY ==
[~2021-07-20] VITALS: Ht 185.4 cm; Wt 118.3 kg
[2021-07-20] MEDS ORDERED: TETANUS,DIPTH,PERTUSS P/F (BOOSTRIX) 0.5 ML VIAL IM ONE (02:45)
[2021-07-20] MEDS ORDERED: LIDOCAINE 1% INJ 20 ML 20 ML VIAL INJ ONE (02:45)
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
[2021-07-20] MEDS ORDERED: HYDROcodone/APAP 5 MG/325 MG (LORTAB) TAB PO ONE (04:15)
[2021-07-20 04:36] VITALS: BP 158/109
== END 2021-07-20 04:34 | disposition home or self-care (01) ==
LOC: ER 02:29 → EDUNIT# 02:29 → ER 04:34
DX: S61.210A Laceration without foreign body of right index finger without damage to nail, initial encounter (principal); I10 Essential (primary) hypertension; Z23 Encounter for immunization; Z79.899 Other long term (current) drug therapy; W23.1XXA Caught, crushed, jammed, or pinched between stationary objects, initial encounter
CPT/HCPCS: 12042; 90715

== ENCOUNTER 2021-08-01 16:11 | Emergency (ER) | payer SELFPAY ==
[~2021-08-01] VITALS: Ht 182 cm; Wt 118.3 kg
[2021-08-01 17:10] VITALS: BP 188/142
== END 2021-08-01 17:16 | disposition home or self-care (01) ==
LOC: EDUNIT# 16:11 → ER 16:13
DX: Z48.02 Encounter for removal of sutures (principal)

== ENCOUNTER 2021-08-04 14:04 | Emergency (ER) | payer SELFPAY ==
[~2021-08-04] VITALS: Ht 182 cm; Wt 118.3 kg
[2021-08-04 14:10] VITALS: BP 160/96
== END 2021-08-04 14:21 | disposition home or self-care (01) ==
LOC: EDUNIT# 14:04 → ER 14:07
DX: Z48.02 Encounter for removal of sutures (principal)

== ENCOUNTER → 2022-01-08 | Outpatient (CLI) | payer SELFPAY ==
[2022-01-08 12:52] LABS: HEMOGLOBIN 15.1 g/dL (13.3-17.7)
[2022-01-08 12:54] LABS: MEAN PLATELET VOLUME 8.8 fL (9.0-12.2)
[2022-01-08 13:03] LABS: ALBUMIN 4.3 GM/DL (3.2-4.5)
[2022-01-08 13:04] LABS: POTASSIUM 4.2 MMOL/L (3.6-5.0)
[2022-01-08 13:05] LABS: CALCIUM 9.3 MG/DL (8.5-10.1)
[2022-01-08 13:06] LABS: BILIRUBIN,URINE NEGATIVE (NEGATIVE); CLARITY,URINE CLEAR; COLOR,URINE YELLOW; GLUCOSE, URINE (UA) NEGATIVE (NEGATIVE); KETONES,URINE NEGATIVE (NEGATIVE); LEUKOCYTE ESTERASE ,URINE 2+ (NEGATIVE); NITRITE,URINE NEGATIVE (NEGATIVE); PROTEIN,URINE 2+ (NEGATIVE)
[2022-01-08 13:09] LABS: PHOSPHORUS 3.8 MG/DL (2.3-4.7)
[2022-01-08 13:10] LABS: CREATININE SERUM 2.17 MG/DL (0.60-1.30)
[2022-01-08 13:33] LABS: AMORPHOUS SEDIMENT,UR FEW AMOR URATES /LPF; BACTERIA,URINE TRACE /HPF
== END ==
LOC: LAB 12:17
PROVIDERS: ATTEND Internal Medicine Nephrology
DX: I12.9 Hypertensive chronic kidney disease with stage 1 through stage 4 chronic kidney disease, or unspecified chronic kidney disease (principal); N18.31 Chronic kidney disease, stage 3a; D63.1 Anemia in chronic kidney disease; E21.1 Secondary hyperparathyroidism, not elsewhere classified; D69.6 Thrombocytopenia, unspecified; R60.0 Localized edema
CPT/HCPCS: 36415; 80069; 81000; 82306; 82570; 83970; 84156; 85027; 87088

== ENCOUNTER → 2022-10-09 | Outpatient (CLI) | payer SELFPAY ==
[2022-10-09 14:29] LABS: HEMATOCRIT 37 % (40-54); HEMOGLOBIN 12.7 g/dL (13.3-17.7); MEAN CORPUSCULAR HEMOGLOBIN 32 pg (25-34); MEAN CORPUSCULAR HGB CONC 35 g/dL (32-36); MEAN CORPUSCULAR VOLUME 92 fL (80-99); MEAN PLATELET VOLUME 8.2 fL (9.0-12.2); PLATELET COUNT 65 10^3/uL (130-400); WHITE BLOOD COUNT 3.7 10^3/uL (4.3-11.0)
[2022-10-09 14:30] LABS: BILIRUBIN,URINE NEGATIVE (NEGATIVE); CLARITY,URINE CLEAR; COLOR,URINE YELLOW; GLUCOSE, URINE (UA) NEGATIVE (NEGATIVE); KETONES,URINE NEGATIVE (NEGATIVE); LEUKOCYTE ESTERASE ,URINE 2+ (NEGATIVE); NITRITE,URINE NEGATIVE (NEGATIVE); PH,URINE 5.5 (5-9); PROTEIN,URINE 2+ (NEGATIVE)
[2022-10-09 14:42] LABS: BACTERIA,URINE NEGATIVE /HPF; SQUAMOUS EPITHELIAL CELL,UR 0-2 /HPF
[2022-10-09 14:49] LABS: ALBUMIN 4.1 GM/DL (3.2-4.5); CALCIUM 8.7 MG/DL (8.5-10.1); CREATININE SERUM 2.04 MG/DL (0.60-1.30); PHOSPHORUS 3.1 MG/DL (2.3-4.7)
== END ==
LOC: LAB 13:56
PROVIDERS: ATTEND Internal Medicine Nephrology
DX: N18.31 Chronic kidney disease, stage 3a (principal); D63.1 Anemia in chronic kidney disease; E21.1 Secondary hyperparathyroidism, not elsewhere classified; D69.6 Thrombocytopenia, unspecified; R60.0 Localized edema
CPT/HCPCS: 36415; 80069; 81000; 82306; 82570; 82728; 83540; 83550; 83970; 84156; 85027; 87088

== ENCOUNTER → 2023-04-09 | Outpatient (CLI) | payer SELFPAY ==
[2023-04-09 15:19] LABS: BILIRUBIN,URINE NEGATIVE (NEGATIVE); CLARITY,URINE CLEAR; COLOR,URINE YELLOW; GLUCOSE, URINE (UA) NEGATIVE (NEGATIVE); KETONES,URINE NEGATIVE (NEGATIVE); LEUKOCYTE ESTERASE ,URINE 2+ (NEGATIVE); NITRITE,URINE NEGATIVE (NEGATIVE); PROTEIN,URINE 2+ (NEGATIVE)
[2023-04-09 15:35] LABS: ALBUMIN 4.3 GM/DL (3.2-4.5); POTASSIUM 4.9 MMOL/L (3.6-5.0)
[2023-04-09 15:41] LABS: CREATININE SERUM 1.8 MG/DL (0.60-1.30); PHOSPHORUS 3.5 MG/DL (2.3-4.7)
[2023-04-09 15:42] LABS: HEMOGLOBIN 11.9 g/dL (13.3-17.7); MONOCYTES # (AUTO) 0.2 10^3/uL (0.0-1.0)
[2023-04-09 15:44] LABS: BASOPHILS % (AUTO) 1 % (0-10); EOSINOPHILS # (AUTO) 0.1 10^3/uL (0.0-0.3); EOSINOPHILS % (AUTO) 2 % (0-10); HEMATOCRIT 34 % (40-54); LYMPHOCYTES % (AUTO) 37 % (12-44); MEAN CORPUSCULAR HEMOGLOBIN 32 pg (25-34); MEAN CORPUSCULAR HGB CONC 35 g/dL (32-36); MEAN CORPUSCULAR VOLUME 92 fL (80-99); MONOCYTES % (AUTO) 6 % (0-12); NEUTROPHILS # (AUTO) 1.5 10^3/uL (1.8-7.8); NEUTROPHILS % (AUTO) 53 % (42-75); PLATELET COUNT 52 10^3/uL (130-400); WHITE BLOOD COUNT 2.8 10^3/uL (4.3-11.0)
[2023-04-09 15:46] LABS: SMEAR SCAN COMMENT YES
[2023-04-09 15:52] LABS: AMORPHOUS SEDIMENT,UR FEW AMOR URATES /LPF; BACTERIA,URINE TRACE /HPF; HYALINE CASTS, URINE 0-2 /LPF
== END ==
LOC: LAB 14:56
PROVIDERS: ATTEND Internal Medicine Nephrology
DX: I12.9 Hypertensive chronic kidney disease with stage 1 through stage 4 chronic kidney disease, or unspecified chronic kidney disease (principal); N18.32 Chronic kidney disease, stage 3b; D69.6 Thrombocytopenia, unspecified; D63.1 Anemia in chronic kidney disease; E21.1 Secondary hyperparathyroidism, not elsewhere classified; R60.0 Localized edema
CPT/HCPCS: 36415; 80069; 81000; 82306; 82570; 82728; 83540; 83550; 83970; 84156; 85025; 87088